=== PATIENT | male | born 1975 | race Caucasian/White ===

== ENCOUNTER 2023-10-26 12:52 | Observation (INO) | payer MEDICARE, SELFPAY ==
[2023-10-26] VITALS (30 sets, daily range): BP systolic 141–186; BP diastolic 76–121; PULSE 61–94; RESP 16–36; TEMP 36.3–37.1; O2SAT 94–100; BMI 26.4
--- NOTE | 2023-10-26 13:16 | ED.GENADULT ---
HPI - General Adult General Time Seen by Provider: 13:16 Date Seen: 10/26/23 Chief complaint: Ear/Nose/Throat Problem Stated complaint: LT ear pain Time Seen by Provider: 10/26/23 13:15 Source: patient and RN notes reviewed Mode of arrival: ambulatory Limitations: no limitations History of Present Illness HPI narrative: This 48-year-old male is coming in complaining with severe left ear pain. He states he was diagnosed with an ear infection yesterday, was given Ciprodex drops in the ER yesterday, ofloxacin and dexamethasone drops were sent in for him to continue to use. He has been having ear drainage. No fevers. He is here because the pain is excruciating, states it feels like his ears going to pop. A wick was reportedly placed yesterday. He did start on oral Augmentin as well. The pain is worsening, travels down his neck, he feels it into his chest, into his eyes. States he is starting to feel dizzy and his whole face feels numb and tingly, he states his numb and tingly everywhere. He is tearful and crying, obviously hyperventilating. States he does have a history of congestive heart failure. Related Data Home Medications ?Medication ?Instructions ?Recorded ?Confirmed amoxicillin 875 mg-potassium 1 tab PO BID 10/26/23 10/26/23 clavulanate 125 mg tablet dexamethasone sodium phosphate 0.1 Otic (ear-left) 10/26/23 % eye drops dextroamphetamine-amphetamine 30 1 tab PO BID 10/26/23 10/26/23 mg tablet lamotrigine 200 mg tablet 200 mg PO QPM 10/26/23 10/26/23 torsemide 20 mg tablet 20 mg PO BID 10/26/23 10/26/23 Allergies Allergy/AdvReac Type Severity Reaction Status Date / Time NSAIDS (Non-Steroidal Allergy Unknown Verified 10/26/23 13:05 Anti-Inflamma Review of Systems Status of ROS: Reports: 6 or more systems reviewed and unremarkable except as noted in History and below [facility] Medical History (Updated 10/26/23 @ 16:10 by Leatha Colorado MD) Otitis externa of left ear ?H60.92 - Unspecified otitis externa, left ear (ICD-10) Congestive heart failure ?I50.9 - Heart failure, unspecified (ICD-10) Exam Const: Vital Signs, click to edit/add: Vital Signs - 24 hr 10/26/23 13:01 10/26/23 13:14 10/26/23 13:15 Temperature 97.4 F L Pulse Rate 80 79 Pulse Rate [Pulse Oximeter] 94 Respiratory Rate 28 H Blood Pressure 152/121 H Blood Pressure [Ri ght Upper Arm] 170/113 H Pulse Oximetry 99 99 100 Oxygen Delivery Me od Room Air 10/26/23 13:23 10/26/23 13:30 10/26/23 13:32 Temperature Pulse Rate 76 75 Pulse Rate [Pulse Oximeter] Respiratory Rate Blood Pressure 164/109 H Blood Pressure [Ri ght Upper Arm] Pulse Oximetry 99 97 97 Oxygen Delivery Me od 10/26/23 13:45 10/26/23 14:03 10/26/23 14:05 Temperature Pulse Rate 73 72 Pulse Rate [Pulse Oximeter] Respiratory Rate 36 H Blood Pressure Blood Pressure [Ri ght Upper Arm] Pulse Oximetry 98 99 Oxygen Delivery Me od 10/26/23 14:05 10/26/23 14:06 10/26/23 14:30 Temperature Pulse Rate 75 70 81 Pulse Rate [Pulse Oximeter] Respiratory Rate Blood Pressure 178/112 H Blood Pressure [Ri ght Upper Arm] Pulse Oximetry 99 99 95 Oxygen Delivery Me thod 10/26/23 14:32 10/26/23 14:33 10/26/23 14:38 Temperature Pulse Rate 76 77 Pulse Rate [Pulse Oximeter] Respiratory Rate 24 Blood Pressure 175/115 H Blood Pressure [Ri ght Upper Arm] Pulse Oximetry 94 95 Oxygen Delivery Me od 10/26/23 15:00 10/26/23 15:02 10/26/23 15:30 Temperature Pulse Rate 87 84 80 Pulse Rate [Pulse Oximeter] Respiratory Rate Blood Pressure 182/115 H Blood Pressure [Ri ght Upper Arm] Pulse Oximetry 98 97 96 Oxygen Delivery Me od 10/26/23 15:32 Temperature Pulse Rate 83 Pulse Rate [Pulse Oximeter] Respiratory Rate Blood Pressure 186/115 H Blood Pressure [Ri ght Upper Arm] Pulse Oximetry 96 Oxygen Delivery Me thod Patient is hyperventilating, tearful/crying, mostly keeps his eyes closed. Conjunctiva with slight vascular injection when he does open his eyes. He is able speak in complete sentences. Symmetrical facial function, no swelling or erythema noted. Left ear canal does seem swollen, cannot visualize into the canal or down to the tympanic membrane. The chelsy bowl does seem mildly erythematous and swollen. He cries out in pain when I attempt to visualize in the ear. There is whitish material, does not seem to be any significant erythema but he has been placing drops in the canal. Right TM and canal are normal. Neck supple, no masses. Lungs are clear, good air entry, no wheezing or crackles. CV regular rate and rhythm, no murmur, normal S1-S2, no S3-S4. No lower extremity edema. Patient was ambulatory into Documenting provider has reviewed patient's vital signs: yes Course Course ED Course: Did encourage this patient to try to slow his breathing and settle down, we discussed hyperventilation. I have no doubt that he has pain, this can be extremely painful. We will get imaging of this ear canal to see the extent of infection. Will get labs. His baseline EKG does have some underlying changes, do not have an active EKG to compare to but will see if we can find 1 in [facility]. In the meantime, check labs, do the imaging of the ear canal and will give him some IV morphine for pain management. He will be monitored on pulse oximetry. Will treat for nausea preemptively with IV Zofran. Reevaluation(s) Time of Reevaluation #1: 15:19 Reevaluation #1: Have reviewed with patient his CT findings. Did place the wick in his ear which he did tolerate. Placed 6 drops of his Ciprodex which is labeled. Will initiate IV Unasyn, will talk to the hospitalist regarding admission for observation. Time of Reevaluation #2: 16:09 Reevaluation #2: Have spoken with the hospitalist, he will accept this patient. Consultations Consultation #1: Reviewed CT findings in case with Dr. Valderrama. He requested I replaced the ear wick, recommends the Ciprodex drops 6 drops every other hour for the time being. Initial IV antibiotics. He will not be here tomorrow but could see the patient on Tuesday if it is needed. I will talk to the hospitalist. Will initiate IV Unasyn. Time: 15:06 Vital Signs Vital signs: Initial Vital Signs Temperature 97.4 F L 10/26/23 13:01 Temperature Source Temporal Artery Scan 10/26/23 13:01 Pulse Rate 94 10/26/23 13:01 Respiratory Rate 28 H 10/26/23 13:01 Blood Pressure 170/113 H 10/26/23 13:01 Blood Pressure Mean 132 H 10/26/23 13:01 Blood Pressure Position Sitting 10/26/23 13:01 Pulse Oximetry 99 10/26/23 13:01 Oxygen Delivery Method Room Air 10/26/23 13:01 Vital Signs Temperature 97.4 F L 10/26/23 13:01 Pulse Rate 94 10/26/23 13:01 Respiratory Rate 28 H 10/26/23 13:01 Blood Pressure 170/113 H 10/26/23 13:01 Pulse Oximetry 99 10/26/23 13:01 Oxygen Delivery Method Room Air 10/26/23 13:01 Temperature 97.4 F L 10/26/23 13:01 Pulse Rate 83 10/26/23 15:32 Respiratory Rate 24 10/26/23 14:38 Blood Pressure 186/115 H 10/26/23 15:32 Pulse Oximetry 96 10/26/23 15:32 Oxygen Delivery Method Room Air 10/26/23 13:01 Medications Administered Medications: Discontinued Medications Generic Name Dose Route Start Last Admin Trade Name Aamir PRN Reason Stop Dose Admin Sodium Chloride 500 mls @ 500 mls/hr 10/26/23 13:25 10/26/23 14:29 0.9 % Sodium Chloride 500 Ml IV 10/26/23 14:24 Infused .Q1H ONE Infusion Ampicillin Sodium/Sulbactam 100 mls @ 200 mls/hr 10/26/23 15:27 10/26/23 15:41 Sodium 3 gm/ Sodium Chloride IVPB 10/26/23 15:28 200 mls/hr ONCE ONE Administration Morphine Sulfate 4 mg 10/26/23 13:25 10/26/23 13:50 Morphine 4 Mg/Ml Inj IVP 10/26/23 13:26 4 mg ONCE ONE Administration Ondansetron HCl 4 mg 10/26/23 13:25 10/26/23 13:50 Ondansetron 2 Mg/Ml Inj IVP 10/26/23 13:26 4 mg ONCE ONE Administration Medical Decision Making Lab Data Lab results reviewed: Yes I reviewed the patient's lab results Labs: Lab Results 10/26/23 Range/Units 13:40 WBC 8.49 (4.50-11.00) K/uL RBC 5.43 (4.30-5.90) m/uL Hgb 18.1 H (13.5-17.5) gm/dL Hct 49.1 (37.0-53.0) % MCV 90 (80-100) fL MCH 33 (26-34) pg MCHC 37 H (32-36) gm/dL RDW Coeff of Jun 12.1 (11.5-15.5) % Plt Count 319 (140-440) K/uL Neut % (Auto) 63.4 (42.0-72.0) % Lymph % (Auto) 27.0 (20-44) % Nelson % (Auto) 7.5 (0.0-11.0) % Eos % (Auto) 1.4 (0.0-7.0) % Baso % (Auto) 0.5 (0.0-3.0) % Neut # (Auto) 5.38 (1.7-7.0) K/uL Lymph # (Auto) 2.29 (0.90-2.90) K/uL Nelson # (Auto) 0.60 (0.00-0.90) K/UL Eos # (Auto) 0.12 (0.00-0.50) K/uL Baso # (Auto) 0.04 (0.00-0.30) K/uL Abs Immat Gran (auto) 0.02 (0.00-0.30) K/uL Imm/Tot Granulo (auto) 0.2 % Sodium 138 (135-149) mmol/L Potassium 3.8 (3.6-5.1) mmol/L Chloride 104 (96-114) mmol/L Carbon Dioxide 21 (20-32) mmol/L Anion Gap 13 (7-15) mEq/L BUN 12 (5-24) mg/dL Creatinine 0.7 (0.5-1.5) mg/dL Estimated GFR 113 ml/min Glucose 147 H (60-115) mg/dL Lactate 2.7 H (0.5-1.9) mmol/L Calcium 9.6 (8.4-10.6) mg/dL Troponin I < 0.01 L (0.01-0.04) ng/mL C-Reactive Protein 1.0 (0.5-1.0) mg/dL NT-Pro-B Natriuret Pep 204 pg/mL Procalcitonin 0.07 (<0.50) ng/mL Imaging Data CT scan - head: Attestation: I have reviewed the pertinent imaging results. My impression: Did visualize the CT scan, can see the canal swelling. Radiologist's impression: Patient: CLAUDY WALDRON Facility:?[facility] Patient ID:?[id number] Site Patient ID:?[id number]. Site :?[id number] Study:?CT-Temporal Bone Bilateral WITHOUT-10/26/2023 2:10:56 PM Ordering Physician:John Paul Zhang Final Report: INDICATION: Severe otitis media TECHNIQUE: CT of the temporal bones without contrast. Coronal and axial small field of view reconstructions of both temporal bones are included. COMPARISON: No relevant comparison studies available for review at the time of this dictation. FINDINGS: RIGHT temporal bone: External ear: Normal imaged periauricular soft tissues. Normal external auditory canal. Normal tympanic membrane. Middle ear: Clear mastoid air cells. Clear epitympanum, mesotympanum and hypotympanum. Normal ossicular chain. Clear oval and round windows. Normal facial nerve canal. Inner ear: Normal mineralization of the otic capsule. Normal cochlea, vestibule, semicircular canals and vestibular aqueduct. Normal internal auditory canal. Vascular: Normal carotid canal and jugular fossa. LEFT temporal bone: External ear: Complete opacification of the external auditory canal, presumably from circumferential mucosal thickening, and trace fluid, extending to the external ear. Intact bony scutum. No suspicious bony erosions. Middle ear: Low-attenuation fluid/debris throughout the epitympanum and hypotympanum, with opacified oval and round windows, and small mastoid effusion. Intact ossicular chain. No suspicious bony erosions. Normal facial nerve canal. Inner ear: Normal mineralization of the otic capsule. Normal cochlea, vestibule, semicircular canals and vestibular aqueduct. Normal internal auditory canal. Vascular: Normal carotid canal and jugular fossa. Imaged head: Calcific plaquing at the carotid siphons. ORIF changes at the maxilla. IMPRESSION: 1. Findings compatible with left otitis externa, including complete opacification of the external auditory canal from circumferential mucosal thickening and trace fluid. 2. Small left middle ear and mastoid effusions, suggesting superimposed otitis media/otomastoiditis. 3. No suspicious bony erosions. Normal CT appearance of the right temporal bone. Please note that all CT scans at this facility use dose modulation, iterative reconstruction, and/or weight-based dosing when appropriate to reduce radiation dose to as low as reasonably achievable. Dictated by Isabel Sewell MD @ 10/26/2023 2:40:22 PM (Electronic Signature) ECG Data Attestation: I personally reviewed and interpreted this ECG as follows: (Sinus rhythm, 83 beats per minute. Flipped T-waves in anterolateral leads as well as inferiorly. No definitive ST segment changes.) Prior ECG tracings: not available for review Discharge Plan Discharge Clinical Impression: Acute mastoiditis of left side Otitis externa Qualifiers: Otitis externa type: diffuse Chronicity: acute Laterality: left Qualified Code(s): H60.312 - Diffuse otitis externa, left ear Patient Disposition: Admitted As Observation Prescriptions: No Action lamotrigine 200 mg tablet 200 mg PO QPM torsemide 20 mg tablet 20 mg PO BID dexamethasone sodium phosphate 0.1 % drops Otic (ear-left) dextroamphetamine-amphetamine 30 mg tablet 1 tab PO BID amoxicillin-pot clavulanate 875-125 mg tablet 1 tab PO BID Follow Up/Referrals: Provider,Not a Local [Primary Care Provider] - Stand Alone Forms: [employer] Info Instructions
--- NOTE | 2023-10-26 13:24 | CRLHL7_ITS ---
For Patients: As a result of the Century Cures Act, medical imaging exams and procedure reports are released immediately into your electronic medical record. You may view this report before your referring provider. If you have questions, please contact your health care provider. INDICATION: Severe otitis media TECHNIQUE: CT of the temporal bones without contrast. Coronal and axial small field of view reconstructions of both temporal bones are included. COMPARISON: No relevant comparison studies available for review at the time of this dictation. FINDINGS: RIGHT temporal bone: External ear: Normal imaged periauricular soft tissues. Normal external auditory canal. Normal tympanic membrane. Middle ear: Clear mastoid air cells. Clear epitympanum, mesotympanum and hypotympanum. Normal ossicular chain. Clear oval and round windows. Normal facial nerve canal. Inner ear: Normal mineralization of the otic capsule. Normal cochlea, vestibule, semicircular canals and vestibular aqueduct. Normal internal auditory canal. Vascular: Normal carotid canal and jugular fossa. LEFT temporal bone: External ear: Complete opacification of the external auditory canal, presumably from circumferential mucosal thickening, and trace fluid, extending to the external ear. Intact bony scutum. No suspicious bony erosions. Middle ear: Low-attenuation fluid/debris throughout the epitympanum and hypotympanum, with opacified oval and round windows, and small mastoid effusion. Intact ossicular chain. No suspicious bony erosions. Normal facial nerve canal. Inner ear: Normal mineralization of the otic capsule. Normal cochlea, vestibule, semicircular canals and vestibular aqueduct. Normal internal auditory canal. Vascular: Normal carotid canal and jugular fossa. Imaged head: Calcific plaquing at the carotid siphons. ORIF changes at the maxilla. IMPRESSION: 1. Findings compatible with left otitis externa, including complete opacification of the external auditory canal from circumferential mucosal thickening and trace fluid. 2. Small left middle ear and mastoid effusions, suggesting superimposed otitis media/otomastoiditis. 3. No suspicious bony erosions. Normal CT appearance of the right temporal bone. Please note that all CT scans at this facility use dose modulation, iterative reconstruction, and/or weight-based dosing when appropriate to reduce radiation dose to as low as reasonably achievable. Dictated by Isabel Sewell MD @ 10/26/2023 2:40:22 PM (Electronically Signed)
[2023-10-26 13:46] LABS: Lactate* 2.7 mmol/L (0.5-1.9)
[2023-10-26] MEDS: 0.9 % SODIUM CHLORIDE 500 ML 500 ML IV (13:49)
[2023-10-26] MEDS: ONDANSETRON 2 MG/ML inj 4 MG IVP (13:50)
[2023-10-26] MEDS: MORPHINE 4 MG/ML INJ IVP (13:50)
[2023-10-26 14:24] LABS: Creatinine* 0.7 mg/dL (0.5-1.5); Estimated Glomerular Filt Rate 113 ml/min
[2023-10-26 14:29] LABS: Basophils Absolute Auto 0.04 K/uL (0.00-0.30); Basophils Percent Auto 0.5 % (0.0-3.0); Eosinophils Absolute Auto 0.12 K/uL (0.00-0.50); Eosinophils Percent Auto 1.4 % (0.0-7.0); Hematocrit 49.1 % (37.0-53.0); Hemoglobin* 18.1 gm/dL (13.5-17.5); Immature Granulocytes Abs Auto 0.02 K/uL (0.00-0.30); Immature Granulocytes Pct Auto 0.2 %; Lymphocytes Absolute Auto 2.29 K/uL (0.90-2.90); Mean Corpuscular HGB Conc 37 gm/dL (32-36); Mean Corpuscular Hemoglobin 33 pg (26-34); Mean Corpuscular Volume 90 fL (80-100); Monocytes Percent Auto 7.5 % (0.0-11.0); Neutrophils Absolute Auto 5.38 K/uL (1.7-7.0); Neutrophils Percent Auto 63.4 % (42.0-72.0); Platelet Count* 319 K/uL (140-440); RDW Coefficient of Variation % 12.1 % (11.5-15.5); Red Blood Count 5.43 m/uL (4.30-5.90); White Blood Count* 8.49 K/uL (4.50-11.00)
[2023-10-26 14:33] LABS: Chloride* 104 mmol/L (96-114); Sodium* 138 mmol/L (135-149)
[2023-10-26 14:38] LABS: Slide Review Reflex No
[2023-10-26 14:52] LABS: Anion Gap 13 mEq/L (7-15); Blood Urea Nitrogen* 12 mg/dL (5-24); Calcium* 9.6 mg/dL (8.4-10.6); Carbon Dioxide* 21 mmol/L (20-32); Glucose* 147 mg/dL (60-115); NT Pro B Type NatriureticPept* 204 pg/mL; Potassium* 3.8 mmol/L (3.6-5.1); Troponin I* < 0.01 ng/mL (0.01-0.04)
[2023-10-26 14:53] LABS: Procalcitonin* 0.07 ng/mL (<0.50)
[2023-10-26] MEDS: AMPICILLIN/SULBACTAM 3 GM in 0.9 % SODIUM CHLORIDE Mini-bag 100 ML IVPB (15:41)
[2023-10-26] MEDS: MORPHINE 2 MG/ML inj IVP (16:18)
[2023-10-26] MEDS: CIPROFLOX/DEXAMETH OTIC ($) 4 DROP EAR-LEFT ×4 (17:00→22:32)
--- NOTE | 2023-10-26 17:26 | PM.IMHP1 ---
Hospitalist- H&P: HPI History of Present Illness Date Seen: 10/26/23 Chief complaint: LT ear pain Narrative: Phillip Galvez JR is a 48 year old male with coronary artery disease and smoking presents with a 3 day history of worsening left ear pain. On Tuesday 3 days ago he started having left ear discomfort and has gradually gotten worse over the last 2 days. He went to the emergency department in [place] yesterday where they diagnosed external otitis, placed a wick and started him on ciprofloxacin hydrocortisone drops and oral Augmentin. Over last day his ear is gotten worse any presents to our emergency department for further evaluation and treatment. He reports he has had previous ear problems for which he seen Dr. Valderrama in December 2019. At that time he was having left facial pain with a broad differential of possible causes. He has not had a fever. He reports that has been painful to swallow and chew in the last 2 days. He does not have a primary care provider or primary radio control crane operator any longer. Previously saw radio control crane operator at [facility] for his coronary artery disease and heart failure with preserved ejection fraction. He has also stopped taking some of his medications for his heart disease including his atorvastatin, carvedilol and his lisinopril. He continues to take his torsemide. Review of Systems Narrative: Patient reports generally doing well other than his ear problems. No current symptoms of heart disease including chest pain, palpitations, unusual dyspnea. [facility] Medical History (Updated 10/26/23 @ 17:59 by Mark Davies MD) Coronary artery disease ?I25.10 - Atherosclerotic heart disease of [place] coronary artery without angina pectoris (ICD-10) Diabetes mellitus ?E11.9 - Type 2 diabetes mellitus without complications (ICD-10) CHILDERS (nonalcoholic steatohepatitis) ?K75.81 - Nonalcoholic steatohepatitis (CHILDERS) (ICD-10) Hypothyroidism ?E03.9 - Hypothyroidism, unspecified (ICD-10) Tobacco abuse ?Z72.0 - Tobacco use (ICD-10) Bipolar disorder ?F31.9 - Bipolar disorder, unspecified (ICD-10) ADHD ?F90.9 - Attention-deficit hyperactivity disorder, unspecified type (ICD-10) Dyslipidemia ?E78.5 - Hyperlipidemia, unspecified (ICD-10) Hypertension ?I10 - Essential (primary) hypertension (ICD-10) Otitis externa of left ear ?H60.92 - Unspecified otitis externa, left ear (ICD-10) Congestive heart failure ?I50.9 - Heart failure, unspecified (ICD-10) Surgical History (Updated 10/26/23 @ 17:44 by Mark Davies MD) History of cholecystectomy ?Z90.49 - Acquired absence of other specified parts of digestive tract (ICD-10) History of Kyle-en-Y gastric bypass ?Z98.84 - Bariatric surgery status (ICD-10) History of coronary artery bypass graft x 3 ?Z95.1 - Presence of aortocoronary bypass graft (ICD-10) Family History (Updated 10/26/23 @ 17:45 by Mark Davies MD) Mother COPD (chronic obstructive pulmonary disease) Father COPD (chronic obstructive pulmonary disease) Coronary artery disease Diabetes High blood pressure High cholesterol Social History (Updated 10/26/23 @ 18:02 by Mark Davies MD) Narrative: He lives in [place] with his . Current smoker. Does not drink alcohol. Does not use recreational drugs. Code status is full code for witnessed arrest. [facility] What is your current living situation?: I presently have a place to live Problems where you live: no known problems Problems where you live details: NA In the past 12 months, utilities in danger of being shut off: no In past 12 months, lack of transportation kept you from medical appts, meetings, work, or getting things needed for daily living: no In the past 12 mos, have been you worried that your food would run out before you had money to buy more?: never true In the past 12 mos, the food you bought just didn't last and you didn't have money to buy more?: never true Highest level of school completed/degree received: Associate degree: occupational, technical, vocational program Smoking Status: Current every day smoker Second hand tobacco smoke exposure: Yes How often do you have a drink containing alcohol: monthly or less How many standard drinks containing alcohol do you have on a typical day: 1 or 2 How often do you have six or more drinks on one occasion: Never AUDIT-C Alcohol total score: 1 Non-prescribed substance use: denies use Caffeine: Yes How often does anyone, including family, friends and others, physically hurt you: never How often does anyone, including family, friends and others, insult or talk down to you: never How often does anyone, including family, friends and others, threaten you with harm: never How often does anyone, including family, friends and others, scream or curse at you: never service: No Meds Home Medications and Allergies Home Medications ?Medication ?Instructions ?Recorded ?Confirmed ?Type amoxicillin 875 mg-potassium 1 tab PO BID 10/26/23 10/26/23 History clavulanate 125 mg tablet ciprofloxacin 0.3 %-dexamethasone 4 drp Otic (ear-left) BID 10/26/23 10/26/23 History 0.1 % ear drops,suspension (Ciprodex) dexamethasone sodium phosphate 0.1 4 drp Otic (ear-left) BID 10/26/23 10/26/23 History % eye drops dextroamphetamine-amphetamine 30 10 mg PO TID 10/26/23 10/26/23 History mg tablet lamotrigine 200 mg tablet 200 mg PO DAILY 10/26/23 10/26/23 History ofloxacin 0.3 % eye drops 10 drp otic (ear) DAILY 10/26/23 10/26/23 History torsemide 20 mg tablet 20 mg PO TID 10/26/23 10/26/23 History Allergies Allergy/AdvReac Type Severity Reaction Status Date / Time NSAIDS (Non-Steroidal Allergy Unknown Verified 10/26/23 13:05 Anti-Inflamma Exam Narrative: Exam Narrative: He is alert and appears in no obvious distress. He gives his own history. He is pleasant and cooperative. Head is without trauma. Inspection shows mild erythema and swelling around the left pinna. Wick is placed in his left external auditory canal, which is otherwise swollen shut. Diffusely tender with palpation over the pinna and surrounding the left ear. Right pinna and external canal are unremarkable except for a small external canal on the right. Eyes normal. Oropharynx normal. No facial asymmetry. He has some discomfort on the left with opening and closing but no trismus. Oropharynx with dry mucous membranes but otherwise normal. Neck is supple without mass or adenopathy. Mild tenderness in the anterior chain of nodes on the left without lymphadenopathy. No stridor. Respirations are clear to auscultation except for a rare crackle. Cardiovascular: S1, S2, regular rate and rhythm. No murmur gallop or rub. Abdomen is soft without tenderness or mass. External genitalia normal. Extremities normal. Good perfusion. No edema. Const: Vital Signs, click to edit/add: Vital Signs - 24 hr 10/26/23 13:01 10/26/23 13:14 10/26/23 13:15 Temperature 97.4 F L Pulse Rate 80 79 Pulse Rate [Pulse Oximeter] 94 Respiratory Rate 28 H Blood Pressure 152/121 H Blood Pressure [Ri ght Arm] Blood Pressure [Ri ght Upper Arm] 170/113 H Pulse Oximetry 99 99 100 Oxygen Delivery Me thod Room Air 10/26/23 13:23 10/26/23 13:30 10/26/23 13:32 Temperature Pulse Rate 76 75 Pulse Rate [Pulse Oximeter] Respiratory Rate Blood Pressure 164/109 H Blood Pressure [Ri ght Arm] Blood Pressure [Ri ght Upper Arm] Pulse Oximetry 99 97 97 Oxygen Delivery Me thod 10/26/23 13:45 10/26/23 14:03 10/26/23 14:05 Temperature Pulse Rate 73 72 Pulse Rate [Pulse Oximeter] Respiratory Rate 36 H Blood Pressure Blood Pressure [Ri ght Arm] Blood Pressure [Ri ght Upper Arm] Pulse Oximetry 98 99 Oxygen Delivery Me thod 10/26/23 14:05 10/26/23 14:06 10/26/23 14:30 Temperature Pulse Rate 75 70 81 Pulse Rate [Pulse Oximeter] Respiratory Rate Blood Pressure 178/112 H Blood Pressure [Ri ght Arm] Blood Pressure [Ri ght Upper Arm] Pulse Oximetry 99 99 95 Oxygen Delivery Me thod 10/26/23 14:32 10/26/23 14:33 10/26/23 14:38 Temperature Pulse Rate 76 77 Pulse Rate [Pulse Oximeter] Respiratory Rate 24 Blood Pressure 175/115 H Blood Pressure [Ri ght Arm] Blood Pressure [Ri ght Upper Arm] Pulse Oximetry 94 95 Oxygen Delivery Me thod 10/26/23 15:00 10/26/23 15:02 10/26/23 15:30 Temperature Pulse Rate 87 84 80 Pulse Rate [Pulse Oximeter] Respiratory Rate Blood Pressure 182/115 H Blood Pressure [Ri ght Arm] Blood Pressure [Ri ght Upper Arm] Pulse Oximetry 98 97 96 Oxygen Delivery Me thod 10/26/23 15:32 10/26/23 15:33 07/10/24 16:00 Temperature Pulse Rate 83 84 84 Pulse Rate [Pulse Oximeter] Respiratory Rate Blood Pressure 186/115 H Blood Pressure [Ri ght Arm] Blood Pressure [Ri ght Upper Arm] Pulse Oximetry 96 96 96 Oxygen Delivery Me thod 10/26/23 16:02 10/26/23 16:03 10/26/23 16:18 Temperature Pulse Rate 83 89 Pulse Rate [Pulse Oximeter] Respiratory Rate 32 H Blood Pressure 178/109 H Blood Pressure [Ri ght Arm] Blood Pressure [Ri ght Upper Arm] Pulse Oximetry 97 96 Oxygen Delivery Me thod 10/26/23 16:30 10/26/23 16:32 10/26/23 17:18 Temperature 97.7 F Pulse Rate 83 84 Pulse Rate [Pulse Oximeter] 76 Respiratory Rate 30 H Blood Pressure 166/104 H Blood Pressure [Ri ght Arm] 177/101 H Blood Pressure [Ri ght Upper Arm] Pulse Oximetry 97 97 97 Oxygen Delivery Me thod Room Air Documenting provider has reviewed patient's vital signs: yes Hospitalist - H&P: Result Labs Labs: Short CBC 10/26/23 Range/Units 13:40 WBC 8.49 (4.50-11.00) K/uL Hgb 18.1 H (13.5-17.5) gm/dL Hct 49.1 (37.0-53.0) % Plt Count 319 (140-440) K/uL BMP 10/26/23 13:40 Sodium 138 Potassium 3.8 Chloride 104 Carbon Dioxide 21 BUN 12 Creatinine 0.7 Glucose 147 H Calcium 9.6 Cardiac Enzymes 10/26/23 Range/Units 13:40 Troponin I < 0.01 L (0.01-0.04) ng/mL Imaging CT temporal bones: Radiologist's impression: INDICATION: Severe otitis media TECHNIQUE: CT of the temporal bones without contrast. Coronal and axial small field of view reconstructions of both temporal bones are included. COMPARISON: No relevant comparison studies available for review at the time of this dictation. FINDINGS: RIGHT temporal bone: External ear: Normal imaged periauricular soft tissues. Normal external auditory canal. Normal tympanic membrane. Middle ear: Clear mastoid air cells. Clear epitympanum, mesotympanum and hypotympanum. Normal ossicular chain. Clear oval and round windows. Normal facial nerve canal. Inner ear: Normal mineralization of the otic capsule. Normal cochlea, vestibule, semicircular canals and vestibular aqueduct. Normal internal auditory canal. Vascular: Normal carotid canal and jugular fossa. LEFT temporal bone: External ear: Complete opacification of the external auditory canal, presumably from circumferential mucosal thickening, and trace fluid, extending to the external ear. Intact bony scutum. No suspicious bony erosions. Middle ear: Low-attenuation fluid/debris throughout the epitympanum and hypotympanum, with opacified oval and round windows, and small mastoid effusion. Intact ossicular chain. No suspicious bony erosions. Normal facial nerve canal. Inner ear: Normal mineralization of the otic capsule. Normal cochlea, vestibule, semicircular canals and vestibular aqueduct. Normal internal auditory canal. Vascular: Normal carotid canal and jugular fossa. Imaged head: Calcific plaquing at the carotid siphons. ORIF changes at the maxilla. IMPRESSION: 1. Findings compatible with left otitis externa, including complete opacification of the external auditory canal from circumferential mucosal thickening and trace fluid. 2. Small left middle ear and mastoid effusions, suggesting superimposed otitis media/otomastoiditis. 3. No suspicious bony erosions. Normal CT appearance of the right temporal bone. Assessment and Plan Assessment and plan (1) Otitis externa of left ear: Problem comment: q2h Ciprodex until ear is better. Zosyn to cover Pseudomonas. Nasal swab for MRSA if positive would recommend coverage for MRSA as well. If not needing MRSA coverage consider outpatient Levaquin. Status: Acute (2) Acute mastoiditis of left side: Problem comment: As above Status: Acute (3) Tobacco abuse: Problem comment: Recommend smoking cessation. He declines nicotine replacement currently Status: Acute (4) Hypothyroidism: Problem comment: Previously on levothyroxine. Tells me he no longer needs it. Check TSH Status: Acute (5) Diabetes mellitus: Problem comment: Not on treatment. Check hemoglobin A1c Status: Acute (6) Hypertension: Problem comment: Stopped Carvedilol and lisinopril on his own. Currently hypertensive. Encouraged medication compliance as well as ongoing outpatient primary care and Cardiology follow-up. Status: Acute (7) Coronary artery disease: Problem comment: Non STEMI and CABG x3 in 2019. Now off most of his medication. Recommended restarting medications and establishing primary care and cardiology appointments. Status: Acute Plan Admitted for pain control and IV antibiotics for mastoiditis and otitis externa. Total Time Spent Total Time Spent: Total time spent today is 75 minutes discussing with patient, and other providers ongoing evaluation and management of mastoiditis, external otitis, coronary disease and hypertension.
--- NOTE | 2023-10-26 18:09 | PC.NURSE ---
Pt arrived to floor at 1638. Pt alert and oriented. Pt had complaints of pain ranging from 8-10 in left ear; see EMAR. Pt is hypertensive and tachypneic; oxygen saturations in high 90's Pt up with SBA. Pt?s at bedside.?
[2023-10-26] MEDS: OXYCODONE 5 MG TABLET PO ×2 (18:41→22:31)
[2023-10-26 18:45] LABS: Hemoglobin A1C* 6.4 % (0-5.6)
[2023-10-26] MEDS: PIPERACILLIN/TAZOBACTAM 3.375 GM in 0.9 % SODIUM CHLORIDE Mini-bag 100 ML IVPB (20:02)
[2023-10-26] MEDS: MELATONIN 3 MG TABLET PO (20:08)
[2023-10-26] MEDS: ACETAMINOPHEN 325 MG TABLET 650 MG PO (20:08)
[2023-10-26] MEDS: SODIUM CHLORIDE 0.9 % (FLUSH) 10 ML SYRINGE 5 ML IVF (20:10)
[2023-10-27] MEDS: CIPROFLOX/DEXAMETH OTIC ($) 4 DROP EAR-LEFT ×6 (02:16→12:11)
[2023-10-27] MEDS: PIPERACILLIN/TAZOBACTAM 3.375 GM in 0.9 % SODIUM CHLORIDE Mini-bag 100 ML IVPB ×2 (02:16→08:12)
[2023-10-27 03:00] VITALS: BP 145/79; PULSE 61; PULSE 83; RESP 16; TEMP 36.4; O2SAT 97
[2023-10-27] MEDS: OXYCODONE 5 MG TABLET PO ×2 (04:02→08:12)
--- NOTE | 2023-10-27 06:51 | PC.NURSE ---
Shift note: The pt has been pleasant and cooperative; denied chest pain and short of breath; Spo2 has been in the 90s in [place]. The pt was c/o of moderate left ear pain the pain was managed with PRN pain medication. Tolerating IV ABX. The pt appeared without any acute distress
[2023-10-27 07:44] VITALS: BP 162/97; PULSE 57; RESP 20; TEMP 36.5; O2SAT 97
[2023-10-27] MEDS: SODIUM CHLORIDE 0.9 % (FLUSH) 10 ML SYRINGE 5 ML IVF (08:13)
[2023-10-27 12:08] VITALS: BP 168/103; PULSE 73; RESP 18; TEMP 36.4; O2SAT 96
--- NOTE | 2023-10-27 12:12 | PM.DS1 ---
DS: Providers Provider Date Seen: 10/27/23 Date of admission: 10/26/23 16:27 Primary care physician: Not a Local Provider Admitting Clinician: Mark Davies MD Attending Physician on discharge: Keren Nicolas [facility] Date of Discharge: 10/27/23 DS: Diagnosis Discharge Diagnosis (1) Otitis externa of left ear: Status: Acute Problem details: Admitted for failed outpatient therapy. CT shows findings compatible with left otitis externa, including complete opacification of the external auditory canal from circumferential mucosal thickening and trace fluid. Small left middle ear and mastoid effusions, suggesting superimposed otitis media/otomastoiditis Started on q2h Ciprodex transitioning to q.4h with close outpatient follow-up with PCP. Initiated on Zosyn to cover Pseudomonas. Transitioned to oral ciprofloxacin on discharge. Nasal swab for MRSA negative. Outpatient follow-up with PCP and ENT recommended (2) Acute mastoiditis of left side: Status: Acute Problem details: As above On day of discharge, patient reporting sensation of drainage from right canal. On exam, none noted. However mild erythema with swelling. Recommended to initiate drops in both ears. (3) Tobacco abuse: Status: Acute Problem details: Recommend smoking cessation. He declines nicotine replacement currently (4) Hypothyroidism: Status: Acute Problem details: Previously on levothyroxine. Tells me he no longer needs it. TSH 6.11. Recommend outpatient follow up for further management. (5) Diabetes mellitus: Status: Acute Problem details: Not on treatment. Hemoglobin A1c 6.4. Heart healthy, low carb diet recommended. Outpatient follow up with PCP. (6) Hypertension: Status: Acute Problem details: Stopped Carvedilol and lisinopril on his own. Currently hypertensive. Encouraged medication compliance as well as ongoing outpatient primary care and Cardiology follow-up. (7) Coronary artery disease: Status: Acute Problem details: Non STEMI and CABG x3 in 2019. Now off most of his medication. Recommended restarting medications and establishing primary care and cardiology appointments. DS: Summary Hospital Course Hospital Course: [age] year old male was admitted to the medical floor for further management failed outpatient therapy acute otitis externa/media/mastoiditis. Course of care and details as noted above. Initiated on IV antibiotics, transition to oral antibiotics prior to discharge. Increased frequency of antibiotic ear drops. In general, patient noncompliant with overall health management and will need close outpatient follow-up with PCP. Remainder of chronic medical comorbidities were monitored and managed with home medications. Status at Discharge Overall status at discharge: patient is back to baseline Time Spent with Patient Time attestation: Total time spent providing and/or coordinating discharge services: Time spent: Greater than 30 minutes Exam Narrative: Exam Narrative: PHYSICAL EXAM General: Pleasant, conversant, NAD HEENT: L canal with swelling, mild erythema. R canal with very minimal swelling and erythema without drainage. Mild lymphadenopathy left side, with little tenderness. Cardiovascular: RRR Pulmonary: No dyspnea Neurological: Alert, answering questions appropriately Skin: Warm, dry. Const: Vital Signs, click to edit/add: Vital Signs - 24 hr 10/26/23 13:01 10/26/23 13:14 10/26/23 13:15 Temperature 97.4 F L Pulse Rate 80 79 Pulse Rate [Pulse Oximeter] 94 Respiratory Rate 28 H Blood Pressure 152/121 H Blood Pressure [Ri ght Arm] Blood Pressure [Ri ght Upper Arm] 170/113 H Pulse Oximetry 99 99 100 Oxygen Delivery Me thod Room Air 10/26/23 13:23 10/26/23 13:30 10/26/23 13:32 Temperature Pulse Rate 76 75 Pulse Rate [Pulse Oximeter] Respiratory Rate Blood Pressure 164/109 H Blood Pressure [Ri ght Arm] Blood Pressure [Ri ght Upper Arm] Pulse Oximetry 99 97 97 Oxygen Delivery Me thod 10/26/23 13:45 10/26/23 14:03 10/26/23 14:05 Temperature Pulse Rate 73 72 Pulse Rate [Pulse Oximeter] Respiratory Rate 36 H Blood Pressure Blood Pressure [Ri ght Arm] Blood Pressure [Ri ght Upper Arm] Pulse Oximetry 98 99 Oxygen Delivery Me thod 10/26/23 14:05 10/26/23 14:06 10/26/23 14:30 Temperature Pulse Rate 75 70 81 Pulse Rate [Pulse Oximeter] Respiratory Rate Blood Pressure 178/112 H Blood Pressure [Ri ght Arm] Blood Pressure [Ri ght Upper Arm] Pulse Oximetry 99 99 95 Oxygen Delivery Me thod 10/26/23 14:32 10/26/23 14:33 10/26/23 14:38 Temperature Pulse Rate 76 77 Pulse Rate [Pulse Oximeter] Respiratory Rate 24 Blood Pressure 175/115 H Blood Pressure [Ri ght Arm] Blood Pressure [Ri ght Upper Arm] Pulse Oximetry 94 95 Oxygen Delivery Me thod 10/26/23 15:00 10/26/23 15:02 10/26/23 15:30 Temperature Pulse Rate 87 84 80 Pulse Rate [Pulse Oximeter] Respiratory Rate Blood Pressure 182/115 H Blood Pressure [Ri ght Arm] Blood Pressure [Ri ght Upper Arm] Pulse Oximetry 98 97 96 Oxygen Delivery Me thod 10/26/23 15:32 10/26/23 15:33 10/26/23 16:00 Temperature Pulse Rate 83 84 84 Pulse Rate [Pulse Oximeter] Respiratory Rate Blood Pressure 186/115 H Blood Pressure [Ri ght Arm] Blood Pressure [Ri ght Upper Arm] Pulse Oximetry 96 96 96 Oxygen Delivery Me od 10/26/23 16:02 10/26/23 16:03 10/26/23 16:18 Temperature Pulse Rate 83 89 Pulse Rate [Pulse Oximeter] Respiratory Rate 32 H Blood Pressure 178/109 H Blood Pressure [Ri ght Arm] Blood Pressure [Ri ght Upper Arm] Pulse Oximetry 97 96 Oxygen Delivery Me od 10/26/23 16:30 10/26/23 16:32 10/26/23 17:18 Temperature 97.7 F Pulse Rate 83 84 Pulse Rate [Pulse Oximeter] 76 Respiratory Rate 30 H Blood Pressure 166/104 H Blood Pressure [Ri ght Arm] 177/101 H Blood Pressure [Ri ght Upper Arm] Pulse Oximetry 97 97 97 Oxygen Delivery Me od Room Air 10/26/23 17:18 10/26/23 19:16 10/26/23 20:08 Temperature 98.8 F 98.8 F Pulse Rate Pulse Rate [Pulse Oximeter] 82 Respiratory Rate 30 H 16 Blood Pressure Blood Pressure [Ri ght Arm] 153/104 H Blood Pressure [Ri ght Upper Arm] Pulse Oximetry 97 97 Oxygen Delivery Me od Room Air Room Air 10/26/23 20:42 10/26/23 23:00 10/27/23 03:00 Temperature 98.8 F 97.6 F Pulse Rate Pulse Rate [Pulse Oximeter] 61 61 Respiratory Rate 16 16 Blood Pressure Blood Pressure [Ri ght Arm] 141/76 H Blood Pressure [Ri ght Upper Arm] Pulse Oximetry 96 Oxygen Delivery Me od Room Air 10/27/23 03:00 10/27/23 07:44 10/27/23 12:08 Temperature 97.5 F L 97.7 F 97.5 F L Pulse Rate Pulse Rate [Pulse Oximeter] 83 57 L 73 Respiratory Rate 16 20 18 Blood Pressure Blood Pressure [Ri ght Arm] 145/79 H 162/97 H 168/103 H Blood Pressure [Ri ght Upper Arm] Pulse Oximetry 97 97 96 Oxygen Delivery Me thod Room Air Room Air Room Air DS: Data Data Completed and Pending Labs on day of discharge: Labs from last 24 hours 10/26/23 10/26/23 10/26/23 17:44 17:28 13:40 WBC 8.49 RBC 5.43 Hgb 18.1 H Hct 49.1 MCV 90 MCH 33 MCHC 37 H RDW Coeff of Jun 12.1 Plt Count 319 Neut % (Auto) 63.4 Lymph % (Auto) 27.0 Oliver % (Auto) 7.5 Eos % (Auto) 1.4 Baso % (Auto) 0.5 Neut # (Auto) 5.38 Lymph # (Auto) 2.29 Oliver # (Auto) 0.60 Eos # (Auto) 0.12 Baso # (Auto) 0.04 Abs Immat Gran (auto) 0.02 Imm/Tot Granulo (auto) 0.2 Sodium 138 Potassium 3.8 Chloride 104 Carbon Dioxide 21 Anion Gap 13 BUN 12 Creatinine 0.7 Estimated GFR 113 Glucose 147 H Hemoglobin A1c 6.4 H Lactate 2.7 H Calcium 9.6 Troponin I < 0.01 L C-Reactive Protein 1.0 NT-Pro-B Natriuret Pep 204 Procalcitonin 0.07 TSH 6.110 H Lab Acknowledgement Test Added Test Added Imaging CT auditory canal: Attestation: I have reviewed the pertinent imaging results. Radiologist's impression: RIGHT temporal bone: External ear: Normal imaged periauricular soft tissues. Normal external auditory canal. Normal tympanic membrane. Middle ear: Clear mastoid air cells. Clear epitympanum, mesotympanum and hypotympanum. Normal ossicular chain. Clear oval and round windows. Normal facial nerve canal. Inner ear: Normal mineralization of the otic capsule. Normal cochlea, vestibule, semicircular canals and vestibular aqueduct. Normal internal auditory canal. Vascular: Normal carotid canal and jugular fossa. LEFT temporal bone: External ear: Complete opacification of the external auditory canal, presumably from circumferential mucosal thickening, and trace fluid, extending to the external ear. Intact bony scutum. No suspicious bony erosions. Middle ear: Low-attenuation fluid/debris throughout the epitympanum and hypotympanum, with opacified oval and round windows, and small mastoid effusion. Intact ossicular chain. No suspicious bony erosions. Normal facial nerve canal. Inner ear: Normal mineralization of the otic capsule. Normal cochlea, vestibule, semicircular canals and vestibular aqueduct. Normal internal auditory canal. Vascular: Normal carotid canal and jugular fossa. Imaged head: Calcific plaquing at the carotid siphons. ORIF changes at the maxilla. IMPRESSION: 1. Findings compatible with left otitis externa, including complete opacification of the external auditory canal from circumferential mucosal thickening and trace fluid. 2. Small left middle ear and mastoid effusions, suggesting superimposed otitis media/otomastoiditis. 3. No suspicious bony erosions. Normal CT appearance of the right temporal bone. Discharge Plan Discharge Disposition: Home, Self-Care Date of Admission: 10/26/23 16:27 Attending Provider on Discharge: Keren Nicolas Primary Care Provider: Provider,Not a Local Condition: Improved Anticipated Discharge Date/Time: 10/27/23 10:25 Discharge Medications: New ciprofloxacin HCl 500 mg tablet 500 mg PO BID Qty: 14 0RF Continued lamotrigine 200 mg tablet 200 mg PO DAILY torsemide 20 mg tablet 20 mg PO TID dextroamphetamine-amphetamine 30 mg tablet 10 mg PO TID dexamethasone sodium phosphate 0.1 % drops 4 drp Otic (ear-left) BID Changed ciprofloxacin-dexamethasone [Ciprodex] 0.3-0.1 % drops,suspension 4 drp otic (ear) Q4H Qty: 7.5 0RF Discontinued amoxicillin-pot clavulanate 875-125 mg tablet 1 tab PO BID ofloxacin 0.3 % drops 10 drp otic (ear) DAILY Patient Comments: INSTILL 10 DROPS IN THE LEFT EAR ONCE DAILY FOR 7 DAYS Discharge Orders: Discharge Order (Routine); Ordered 10/27/23 Ordered By: Keren Nicolas Patient Education: Ciprofloxacin (By mouth) (Cipro), Mastoiditis (GEN) Additional Instructions: Continue to use drops in both ears. Ciprodex drops every 4 hours. You can stop the Ofloxacin drops. You will also take an oral antibiotic for the next 7 days. Close follow up with PCP for recheck Activity Level: No Restrictions Discharge Diet: Heart Healthy (2 gm sodium, low fat) Follow Up Appointments: Provider,Not a Local [Primary Care Provider] - (Post hospital follow up 3-5 days, mastoiditis, otitis, HTN, pre-diabetes management Patient states he will make the appointment himself.) Forms: [employer] Info Instructions
[2023-10-27 12:20] LABS: Basophils Absolute Auto 0.04 K/uL (0.00-0.30); Basophils Percent Auto 0.6 % (0.0-3.0); Eosinophils Absolute Auto 0.19 K/uL (0.00-0.50); Eosinophils Percent Auto 2.9 % (0.0-7.0); Hematocrit 47.4 % (37.0-53.0); Hemoglobin* 16.8 gm/dL (13.5-17.5); Immature Granulocytes Abs Auto 0.01 K/uL (0.00-0.30); Immature Granulocytes Pct Auto 0.2 %; Lactate* 1.3 mmol/L (0.5-1.9); Lymphocytes Absolute Auto 1.54 K/uL (0.90-2.90); Lymphocytes Percent Auto 23.7 % (20-44); Mean Corpuscular HGB Conc 35 gm/dL (32-36); Mean Corpuscular Hemoglobin 33 pg (26-34); Mean Corpuscular Volume 94 fL (80-100); Monocytes Percent Auto 8.4 % (0.0-11.0); Neutrophils Absolute Auto 4.18 K/uL (1.7-7.0); Neutrophils Percent Auto 64.2 % (42.0-72.0); Platelet Count* 271 K/uL (140-440); RDW Coefficient of Variation % 12.2 % (11.5-15.5); Red Blood Count 5.06 m/uL (4.30-5.90); White Blood Count* 6.51 K/uL (4.50-11.00)
[2023-10-27 12:27] LABS: Slide Review Reflex No
--- NOTE | 2023-10-27 13:07 | PC.NURSE ---
Pt alert and oriented. Pt had complaints of pain ranging 5-8; see EMAR for intervention. Pt up independently in room. Pt's IV removed; catheter in place. Pt's ear drops given to . Pt discharged home with .
== END 2023-10-27 13:05 | disposition home or self-care (01) ==
LOC: ED 16:10 → MEDSURG 16:28
PROVIDERS: Physician Assistant; Admitting Provider Family Medicine; Emergency Provider Family Medicine; Visit Provider Family Medicine
DX: I10 Essential (primary) hypertension (principal)
CPT/HCPCS: 36415; 70480; 80048; 83036; 83605; 83880; 84145; 84443; 84484; 85025; 86140; 87081; 93005; 94761; 99284; 99285; A9270; G0378; J0295; J2270; J2405; J2543; J7030

== ENCOUNTER 2025-01-07 01:24 | Emergency (ER) | payer MEDICARE, SELFPAY ==
--- OUTSIDE RECORDS SUMMARY | 2022-01-06 08:01 | XMS_ITS | Continuity of Care Document ---
Author Organization [facility] Address [address] [address] [place] [address] Phone Care Team Providers Care Reach Truck Operator Name Role Phone Antonieta Novak CRNA Unavailable Unavailable Allergies, Adverse Reactions, Alerts Substance Reaction Status Criticality ibuprofen Active No Information HYDROCODONE BITARTRATE Difficulty breathing Active No Information acetaminophen Active No Information adhesive tape Active No Information Medications Medication Instructions Dosage Effective Dates (start - stop) Status Comments Adderall 10 mg tablet take 1 tablet by oral route every day 10 MG - Active torsemide 20 mg tablet take 3 tablet by oral route every 12 hours 60 MG - Active levothyroxine 100 mcg tablet take 1 tablet by oral route every day 100 MCG - Active omeprazole 40 mg capsule,delayed release take 1 capsule by oral route 2 times every day before a meal 40 MG - No Longer Active sucralfate 1 gram tablet take 1 tablet by oral route 4 times every day on an empty stomach 1 hour before meals and at bedtime 1 G - No Longer Active lamotrigine 200 mg tablet take 2 tablet by oral route every day 400 MG No Longer Active guanfacine 1 mg tablet take 1 tablet by oral route every day at bedtime 1 MG - No Longer Active AMPHETAMINE SULFATE (unknown strength) take 1 tablet by oral route 2 times every day given at 4-6 hour intervals Not Available - No Longer Active Linzess 290 mcg capsule take 1 capsule by oral route every day on an empty stomach at least 30 minutes before 1st meal of the day 290 MCG - No Longer Active Procedures Procedure Date Ugi Endo; W/bx 1/mx Colorectal Ca Screen Hi Risk I Level Iv-surg Path Gross/micro Offic/outpt E&m Estab Mod-hi 2 Routine Serum Collection cancelled appt Ugi Endo; W/insrt Guide Wire Ugi Endo; W/bx /mx Moderate sedation, initial 15 minutes Se Offic/outpt E&m Estab Mod-hi 2 17 Subsqt Hosp-da E&m Minr Compl 6 Subsqt Hosp-da E&m Minr Compl 6 Subsqt Hosp-da E&m Minr Compl 6 Subsqt Hosp-da E&m Minr Compl 6 Subsqt Hosp-da E&m Minr Compl 6 Subsqt Hosp-da E&m Minr Compl 6 Subsqt Hosp-da E&m Minr Compl 6 Init Hosp-da E&m Mod Severity 6 Advance Directives Directive Yes / No Effective Date File Name No Information Encounters Encounter Description Practice Location Reason(s) For Visit Diagnoses Date Provider Providers Copied on Encounter [facility] JOSE E SN[address] [address], [place], [id number], [place] tel:[phone] [facility] No Information 2 Scarlet Fung. [address] [facility] [address], [address], [place], [place], [address], [place]. tel:[phone] Referring Provider: Libertad Calvo, [address] [facility] [address], [place], [address] . tel:[phone] [facility], [address] [address], [place], [address], [place] tel:[phone] [facility] GI Symptoms or Concerns (chief complaint) Gastrojejunal ulcer, unsp as acute or chr, w/o hemor or perfHistory of Kyle-en-Y gastric bypassGastroe sophageal reflux disease with esophagitis without hemorrhageCol on cancer screeningFami ly history of colonic polypsEncount er for screening for malignant neoplasm of colonGastroje junal ulcer, unsp as acute or chr, w/o hemor or perfGastro-es ophageal reflux disease with esophagitis, without bleedingFamil y history of colonic polyps 2 Regulo Maurer. [address] [place] [address], [place] [address], [place], [place], [address], [place]. tel:[phone] Victor Hugo Prather MD. tel:[phone] erring Provider: Referral Self, USE FOR SELF REFERRALS. Offic/outpt E&m Estab Mod-hi 2 [facility] CLAUDIO, [address] [address], [place], [id number], [place] tel:[phone] [facility] GI Symptoms or Concerns (chief complaint) Chronic constipationM arginal ulcerWeight gainAdenomato us polyp of colon, unspecified part of colon 2 Regulo Maurer. [address] [place] [address], [place] [address], [place], [place], [address], [place]. tel:[phone] Iman Stevens MD. tel:[phone] erring Provider: Victor Hugo Prather MD A, [address], [place], [address]. tel:[phone] [facility] [place], [address] [address], [place], [address], [place] tel:[phone] No Information 2 No Information Referring Provider: Leydi Menjivar CNP M, [address] [place], [address]. tel:[phone] [facility], [address] [address], [place], [address], [place] tel:[phone] [facility] No Information No Information Referring Provider: Iman Ramos, [address] [place], [address]. tel:[phone] [facility] [place], [address] [address], [place], [address], [place] tel:[phone] [facility] No Information Geni KUMAR Wendy Nj. [address] [facility] [address], [address], [place], [place], [address], [place]. tel:[phone] Referring Provider: Iman Ramos, [address] [place], [address]. tel:[phone] Offic/outpt E&m Estab Mod-hi 2 [facility] [place], [address] [address], [place], [id number], [place] tel:[phone] [facility] GI Symptoms or Concerns (chief complaint) Right flank painFatty liver disease, nonalcoholicE levated LFTsNauseaMes enteric adenitis No Information Referring Provider: Iman Ramos, [address] [place] [address], [address]. tel:[phone] Subsqt Hosp-da E&m Minr Compl [facility], [address] [address], [place], [address], [place] tel:[phone] [facility] No Information 6 Maury Mcclelland. [address] [facility] [address], [address], [place], [place], [address], [place]. tel:[phone] Referring Provider: Krystin Mendiola NP P, [address] [facility] [address], [place], [address] . tel:[phone] Subsqt Hosp-da E&m Minr Compl [facility] [place], [address] [address], [place], [address], [place] tel:[phone] [facility] No Information 6 Miguel Umaña. [address] [facility], [facility] [address], [place], [place], [address], [place]. tel:[phone] Referring Provider: Chasidy Fox, [address] [facility] [address], [place], [address] . tel:[phone] Subsqt Hosp-da E&m Minr Compl [facility], [address] [address], [place] [facility], [address], [place] tel:[phone] [facility] No Information 6 Miguel Umaña. [address] [facility] [address], [facility] [address], [place], [place], [address], [place]. tel:[phone] Referring Provider: Chasidy Fox, [address] [facility] [address], [place], [address] . tel:[phone] Subsqt Hosp-da E&m Minr Compl [facility], [address] [address], [facility] [place], [address], [place] tel:[phone] [facility] No Information 6 Aria Kaplan. [address] [facility] [address], [facility] [address], [place], [place], [address], [place]. tel:[phone] Referring Provider: Cristine Hogue MD, [address] [place] [address], [place], [address]. tel:[phone] [facility], [address] [address], [facility] [place] [address], [place] tel:[phone] [facility] Acute pancreatitis, unspecified complication status, unspecified pancreatitis type 6 Maury Mcclelland. [address] [facility], [facility] [address], [place], [place], [address], [place]. tel:[phone] Referring Provider: Referral Self, USE FOR SELF REFERRALS. Subsqt Hosp-da E&m Minr Compl [facility], [address] [address], [place], [address], [place] tel:[phone] [facility] No Information 6 Maury Mcclelland. [address] [place] [address], [address], [address], . [phone] Referring Provider: Krystin Mendiola NP P, [address] [facility] [address], [place], [address] . tel:[phone] In Hosp-da E&m Mod Severity [facility], [address] [address], [place], [place], [address], tel:[phone] [facility] No Information 6 Aria Kaplan. [address] [place] [address], [facility] [address], [address], . [phone] Referring Provider: Eusebio Knapp MD, [address] [place] [address], [place], [address] . tel:[phone] Family History Family Member Type Diagnosis Age At Onset Mother Problem (finding) Colon polyps Father Problem (finding) Gallbladder disease Mother Problem (finding) Cancer, colon Problem (finding) Family history of reflu x disease Mother Problem (finding) ulcerative colitis Sister Problem (finding) Asthma Sister Problem (finding) Thyroid disorder Father Problem (finding) Cancer, lung Sister Problem (finding) alcoholism Father Problem (finding) Cancer, unknown Father Problem (finding) Asthma Sister Problem (finding) Cancer, breast Sister Problem (finding) Cancer, colon Sister Problem (finding) GERD Mother Problem (finding) Cancer, breast Sister Problem (finding) Celiac disease Mother Problem (finding) reflux disease Mother Problem (finding) Hemochromatosis Mother Problem (finding) diverticulitis of colon Sister Problem (finding) Gallbladder disease Mother Problem (finding) Asthma Father Problem (finding) GERD Father Problem (finding) Colon polyps Sister Problem (finding) Cancer, unknown Mother Problem (finding) Crohn's disease Mother Problem (finding) Thyroid disorder Father Problem (finding) Irritable bowel syndrom e Sister Problem (finding) Peptic ulcer disease Father Problem (finding) Peptic ulcer disease Mother Problem (finding) Peptic ulcer disease Father Problem (finding) Cirrhosis Mother Problem (finding) malignant neoplasm of p harynx Sister Problem (finding) Colon polyps Father Problem (finding) Thyroid disorder Immunizations Vaccine Date Status Comments SARS-COV-2 (COVID-19) vaccin e, mRNA, spike protein, LNP, preservative free, 30 mcg/0.3mL dose administered Note: [facility] bi-direct ional interface ; Source: Other Registry SARS-COV-2 (COVID-19) vaccin e, mRNA, spike protein, LNP, preservative free, 30 mcg/0.3mL dose administered Note: [facility] bi-direct ional interface ; Source: Other Registry Engerix-B administered Note: [facility] bi-d irectional interface ; Source: Other Registry Afluria Qd administered Note: [facility] bi-directional interface ; Source: Other Registry Afluria Qd administered Note: [facility] bi-directional interface ; Source: Other Registry Afluria Qd administered Note: [facility] bi-directional interface ; Source: Other Registry tetanus toxoid, reduced diphtheria toxoid, and acellular pertussis vaccine, adsorbed administered Note: [facility] b i-directional interface ; Source: Other Registry Pneumovax 23 administered Note: [facility] bi-d irectional interface ; Source: Other Registry Influenza, seasonal, injectable administe red Note: [facility] bi- directional interface ; Source: Other Registry Influenza, seasonal, injectable administe red Note: [facility] bi- directional interface ; Source: Other Registry measles, mumps and rubella v irus vaccine administered Note: [facility] bi-direct ional interface ; Source: Other Registry Payers Payer name Insurance type Covered green party ID Authoriza tidonta(s) Medicare NGS MB [id number] Social History Type Description Quantity Date Captured Comments Sex Male Smoking Status No Information Chief Complaint And Reason For Visit No Information Reason For Referral Reason For Referral No Information Plan Of Treatment Date Type Action Status Referral Ordered: Thyroid [place] Profile Appointment date/timeframe: First Available ordered Referral Ordered: CT Abdomen And Pelvis WITHOUT And WITH Contrast Appointment date/timeframe: -today ordered History Of Present Illness Encounter Date Complaint History Of Prese nt Illness GI Symptoms or Concerns GI Symptoms or Concerns PRIOR DI AGNOSTICS-- EGD on 01/03/2017 for abdominal pain in the right upper quadrant and dysphagia - LA grade B reflux esophagitis. Widely patent Schatzki's ring. Dilated. Gastritis. Normal duodenum. Duodenal biopsies were normal. Gastric biopsies with slight nonspecific chronic inflammatory change. Distal esophageal biopsies with mild chronic inflammatory change. Middle esophageal biopsies were unremarkable.-- Colonoscopy on 01/03/2017 for abdominal pain in the right upper quadrant, 1st colonoscopy - 3 polyps removed. One was a tubular adenoma. 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 Haji at [facility]).-- EGD on 03/04/2020 for epigastric abdominal pain, iron-deficiency anemia - nonbleeding gastric ulcer with adherent clot was found at the anastomosis. Biopsies taken of the anastomotic site demonstrated patchy active enteritis with erosion. Background reactive changes. Negative for celiac or other enteropathy.- GI Symptoms or Concerns SUBJECTI VEMr. Galvez comes for followup at his right request through the office of his primary care provider Iman Stevens.He was last seen in March 2016 when he was hospitalized at [facility] with pancreatitis, etiology secondary to hypertriglyceridemia. That situation apparently resolved without significant pancreatic sequelae.The patient reports back pain along the right side of his back from the lumbar area down to the right buttock and around to the right side along the mid clavicular line. This tends not to extend to the front of the abdomen and therefore seems extra-abdominal. On further discussion, he does state that he occasionally has some right lower quadrant discomfort, although it is mostly in his back. This is always present and is described as an achy sensation that is quite difficult to deal with. He also has concomitant nausea with occasional emesis, abdominal swelling, and bloating, which he describes as a rock hard abdomen. Functional Status Date Functional Assessmen t No Information Instructions Date Instruction Additional Infor sadi Gastroesophageal Reflux Disease Related to Gastrojejunal ulcer, unsp as acute or chr, w/o hemor or perf 1. I recommend the p atient follow up with his billboard poster helper for both his history of coronary artery disease for cardiac clearance for EGD and colonoscopy.2. The endoscopic procedure with biopsy will be scheduled in three weeks. Hopefully, he will be cleared to them done at that time. Based on cardiology evaluation, they may need to be performed at a hospital.3. In the interim, recommended a gastric emptying study four hours.4. I discussed six small low fat meals with the patients that have three meals to promote gastric emptying. I also recommend that he take his Nexium 40 mg daily one half hour before breakfast instead of p.r.n.5. Okay to take Zocor from a gastroenterology perspective. I would monitor his liver function testing as long as they do not elevate more than three times normal. He can continue to take that medication.6. Strongly recommend he follow up with an station helper for treatment of his diabetes and metabolic syndromes as well as his hypertriglyceridemia.7. I see no reason to repeat his CAT scan today given that his symptoms are relatively chronic and he has two unchanged CT scans from June and November 2016. However, if his pain continues to increase then he may need to have another cat scan performed in the near term to make sure he does not have an evolving intra-abdominal process. Conversely if he continues to have significant abdominal pain and cannot be managed as an outpatient, perhaps elective inpatient hospitalization may be necessary. Although at this point, I see no reason to proceed in this direction.8. The patient will otherwise follow up with his primary care provider and contact our office with any problems, questions, or concerns regarding the above.9. Thank you for allowing me to participate in this patient's healthcare. Please call with any further questions. Related to Right flank pain Gastric Emptying Study (4 Hours) Assessments Type Assessment Date No Information Patient Care Teams Name Effective Dates (start - stop) Status Members No Information
--- OUTSIDE RECORDS SUMMARY | 2022-01-06 08:01 | XMS_ITS | Continuity of Care Document ---
Author Organization [facility] Address [address] [address] [place] [address] Phone Care Team Providers Care Coal Tower Operator Name Role Phone Antonieta Novak CRNA [...] Diagnoses Date Provider Providers Copied on Encounter [facility] JOSE E SNY[address] [address], [place], [id number], [place] tel:[phone] [facility] No Information 2 Scarlet Fung. [address] [facility], [address], [place], [place], [address], [place]. tel:[phone] Referring Provider: Libertad Calvo, [address] [facility] [address], [place], [address] . tel:[phone] [facility], [address] [address], [place], [address], [place] tel:[phone] [facility] GI Symptoms or Concerns (chief [...] history of colonic polyps 2 Regulo Maurer. [address] [place] [address], [place] [address], [place], [place], [address], [place]. tel:[phone] Victor Hugo Prather MD. tel:[phone] erring Provider: Referral Self, USE FOR SELF REFERRALS. Offic/outpt E&m Estab Mod-hi 2 [facility] CLAUDIO, [address] [address], [place], [address], [place] tel:[phone] [facility] GI Symptoms or Concerns (chief complaint) Chronic constipationM arginal ulcerWeight gainAdenomato us polyp of colon, unspecified part of colon 2 Regulo Maurer. [address] [place] [address], [place] [address], [place], [place], [address], [place]. tel:[phone] Iman Stevens MD. tel:[phone] erring Provider: Victor Hugo Prather MD A, [address], [place], [address]. tel:[phone] [facility] [place]IO, [address] [address], [place], [address], [place] tel:[phone] No Information 2 No Information Referring Provider: Leydi Menjivar CNP M, [address] [place], [address]. tel:[phone] [facility], [address] [address], [place], [address], [place] tel:[phone] [facility] No Information No Information Referring Provider: Iman Ramos, [address] [place], [address]. tel:[phone] [facility] [place], [address] [address], [place], [address], [place] tel:[phone] [facility] No Information Geni KUMAR Wendy Nj. [address] [facility], [address], [place], [place], [address], [place]. tel:[phone] Referring Provider: Iman Ramos, [address] [place], [address]. tel:[phone] Offic/outpt E&m Estab Mod-hi 2 [facility], [address] [address], [place], [address], [place] tel:[phone] [facility] GI Symptoms or Concerns (chief complaint) Right flank painFatty liver disease, nonalcoholicE levated LFTsNauseaMes enteric adenitis No Information Referring Provider: Iman Ramos, [address] [place] [address], [address]. tel:[phone] Subsqt Hosp-da E&m Minr Compl [facility] [place], [address] [address], [place], [address], [place] tel:[phone] [facility] No Information 6 Maury Mcclelland. [address] [facility], [address], [place], [place], [address], [place]. tel:[phone] Referring Provider: Krystin Mendiola NP P, [address] [facility] [address], [place], [address] . tel:[phone] Subsqt Hosp-da E&m Minr Compl [facility], [address] [address], [place], [address], [place] tel:[phone] [facility] No Information 6 Miguel Umaña. [address] [facility], [facility] [address], [place], [place], [address], [place]. tel:[phone] Referring Provider: Chasidy Fox, [address] [facility] [address], [place], [address] . tel:[phone] Subsqt Hosp-da E&m Minr Compl [facility], [address] [address], [place], [address], [place] tel:[phone] [facility] No Information 6 Miguel Umaña. [address] [facility], [facility] [address], [place], [place], [address], [place]. tel:[phone] Referring Provider: Chasidy Fox, [address] [facility] [address], [place], [address] . tel:[phone] Subsqt Hosp-da E&m Minr Compl [facility], [address] [address], [place] [facility] [place], [address], [place] tel:[phone] [facility] No Information 6 Aria Kaplan. [address] [facility], [facility] [address], [place], [place], [address], [place]. tel:[phone] Referring Provider: Cristine Hogue MD, [address] [place] [address], [place], [address]. tel:[phone] [facility], [address] [address], [facility] [place], [address], [place] tel:[phone] [facility] Acute pancreatitis, unspecified complication status, unspecified pancreatitis type 6 Maury Mcclelland. [address] [facility], [facility] [address], [place], [place], [address], [place]. tel:[phone] Referring Provider: Referral Self, USE FOR SELF REFERRALS. Subsqt Hosp-da E&m Minr Compl [facility], [address] [address], [place], [address], [place] tel:[phone] [facility] No Information 6 Maury Mcclelland. [address] [place] [address], [address], [id number], . [phone] Referring Provider: Krystin Mendiola NP P, [address] [facility] [address], [place], [address] . tel:[phone] In Hosp-da E&m Mod Severity [facility], [address] [address], [place], [place], [address], tel:[phone] [facility] No Information 6 Aria Kaplan. [address] [place] [address], [facility] [address], [place], [address], . [phone] Referring Provider: Eusebio Knapp MD, [address] [place] [address] [address], [place], [address] . tel:[phone] Family History Family Member Type Diagnosis Age [...] party ID Authoriza tidonta(s) Medicare NGS MB [id number] Social History Type Description Quantity Date Captured Comments Sex Male Smoking Status No Information Chief Complaint And Reason For Visit No Information Reason For Referral Reason For Referral No Information Plan Of Treatment Date Type Action Status Referral Ordered: Thyroid [place] Profile Appointment date/timeframe: First Available ordered Referral [...] gastric bypass on 05/30/2018 (Dr. Haji at [facility]).-- EGD on 03/04/2020 for epigastric abdominal pain, [...] March 2016 when he was hospitalized at [facility] with pancreatitis, etiology secondary to [...] the p atient follow up with his online media director for both his history of coronary artery [...] Strongly recommend he follow up with an circulating process inspector for treatment of his diabetes and metabolic [...]
--- OUTSIDE RECORDS SUMMARY | 2025-01-07 01:26 | XMS_ITS | Clinical Summary ---
Author Organization [facility] [employer] [facility] Address [address] [place] [address] Care Team Providers Care Body Shop Floorperson Name Role Phone Vincent Leyva MD Unavailable Unava ilable Dustin Mcgee MD Unavailable [phone] Jose Morales MD Unavailable Victor Hugo Prather MD Unavailable [facility] Primary Care Provider Allergies Active Allergy Reactions Criticality Noted Date Comments Acetaminophen Nausea Only 10/07/2021 Hydrocodone Bitartrate Shortness Of Breath 09/17 Ibuprofen Bleeding 12/23/2018 Patient reports hx of weight loss surgery and stomach ulcer Nsaids (Non-Steroidal Anti-Inflammatory Drug) Other - Describe In Comment Field 09/30/2021 H/o robbi-n-y gastric bypass. AVOID NSAIDs and aspirin due to risk of gastric and/or G-J anastomotic ulcers. If Claudy must be on short course of NSAIDs or aspirin, use enteric coated if possible and use PPI // Annalise Cano RN, Bariatric Nurse Clinician, [facility] Weight Management 09/30/2021 Adhesive Rash,Erythema 01/22/2011 rash, only with 3M [place] (silky) tape. Clear and paper tape ok. Hydrocodone-Acetaminoph en Nausea Only,Dizziness 03/20/2018 Medications calcium citrate-vitamin D3, 315 mg-250 units, (CITRUS CALCIUM) 315-250 mg-unit tab tablet Take 1500mg daily in divided doses with meals 90 tablet Active lamoTRIgine (LAMICTAL) 200 mg tabletIndications: Bipolar disease, manic (HC) TAKE ONE TABLET BY MOUTH EVERY DAY 30 tablet 5 01/18/20 19 Active nitroglycerin (NITROSTAT) 0.4 mg sublingual tabletIndications: Abnormal nuclear stress test Place 1 Tablet (0.4 mg) under the tongue every 5 minutes if needed for Chest Pain. 30 tablet. 11 02/27/20 21 Active clotrimazole (LOTRIMIN) 1 % creamIndications:Y east dermatitis Apply topically to affected area(s) 2 times daily. 45 g 1 02/27/20 21 Active lancetsIndications :Type 2 diabetes mellitus with hyperglycemia, with long-term current use of insulin (HC) Test 4 times per day. 400 Each 3 02/27/20 21 Active levothyroxine (SYNTHROID) 100 mcg tabletIndications: Goiter,Hypothyroid ism due to acquired atrophy of thyroid Take 1 Tablet (100 mcg) by mouth once daily. 90 Tablet 3 03/09/20 21 Active omeprazole (PRILOSEC) 40 mg Delayed-Release capsuleIndications :Gastric ulcer, unspecified chronicity, unspecified whether gastric ulcer hemorrhage or perforation present TAKE ONE CAPSULE BY MOUTH TWICE A DAY 180 Capsule 04/30/19 22 Active sildenafil citrate (VIAGRA) 100 mg tabletIndications: Erectile dysfunction, unspecified erectile dysfunction type TAKE ONE TABLET BY MOUTH EVERY DAY NEEDED FOR ERECTILE DYSFUNCTION, TAKE 30 MINUTES TO 4 HOURS BEFORE SEXUAL ACTIVITY, MAXIMUM OF 100MG IN 24 HOURS 90 Tablet 3 05/19/19 22 Active Amphetamine-Dextro amphetamine (ADDERALL) 30 mg tablet TAKE ONE TABLET BY MOUTH EVERY DAY IN THE AFTERNOON 07/10/19 22 Active guanFACINE (TENEX) 2 mg tablet Take 2 mg by mouth at bedtime. 06/25/19 22 Active cyanocobalamin (VITAMIN B12) 1,000 mcg sublingual tabletIndications: Screening for endocrine, nutritional, metabolic and immunity disorder Place 1 Tablet (1,000 mcg) under the tongue once daily. 0 Active Pediatric Multivitamins-Iron chewable tabletIndications: Screening for endocrine, nutritional, metabolic and immunity disorder Chew 2 Tablets by mouth once daily. 0 Active cholecalciferol, Vitamin D3, (Vitamin D-3) 5,000 unit tab tabletIndications: Screening for endocrine, nutritional, metabolic and immunity disorder Take 1 Tablet (5,000 units) by mouth once daily. 30 Tablet 11 09/05/19 22 Active sucralfate (CARAFATE) 1 gram tabletIndications: Marginal ulcer TAKE ONE TABLET BY MOUTH FOUR TIMES A DAY WITH MEALS AND AT BEDTIME 360 Tablet 11/03/19 22 Active torsemide (DEMADEX) 20 mg tabletIndications: Acute diastolic heart failure (HC) TAKE ONE TABLET BY MOUTH TWICE A DAY 180 Tablet 12/24/19 22 Active rx ondansetron (ZOFRAN ODT) 4 mg orally disintegrating tablet (ED DC MED)Indications:Na usea Place 1 Tablet (4 mg) on the tongue every 8 hours if needed (nausea). 4 Tablet 03/03/20 22 Active meclizine (ANTIVERT) 25 mg tabletIndications: Vertigo Take 1 Tablet (25 mg) by mouth 3 times daily if needed for Vertigo. 12 Tablet 12/17/19 25 Active ondansetron (ZOFRAN ODT) 4 mg disintegrating tabletIndications: Vertigo Place 2 Tablets (8 mg) on the tongue every 8 hours if needed for Nausea/Vomiti ng. 12 Tablet 12/17/19 25 Active amoxicillin-clavul anate (AUGMENTIN) 875-125 mg tabletIndications: Acute otitis externa of left ear, unspecified type Take 1 Tablet by mouth every 12 hours for 7 days. 14 Tablet 01/07/20 25 025 Active ciprofloxacin-dexA METHasone (CIPRODEX) otic suspensionIndicati ons:Acute otitis externa of left ear, unspecified type Place 4 Drops into left ear two times daily for 6 days. 5 mL 01/07/20 25 025 Active ciprofloxacin-dexA METHasone (CIPRODEX) otic suspension (ED DC MED)Indications:Ot itis externa, unspecified chronicity, unspecified laterality, unspecified type Place 4 Drops into left ear two times daily. 7.5 mL 10/25/19 24 025 Discontin ued(*Med complete/ Regimen complete/ Level of care change) Active Problems Problem Noted Date Diagnosed Date S/P laparoscopic cholecystectomy 11/10/2018 Overview (11/10/2018): Dr. Prather Cholecystitis 11/09/2018 Robotic assisted robbi-en-y gastric bypass 2018 Overview (05/30/2018): Dr. Haji RUQ pain 04/10/2018 NAFLD (nonalcoholic fatty liver disease) 018 Overview (12/27/2017): 11/04/17 Diffuse fatty infiltration of the liver Vitamin D deficiency 11/30/2017 Overview (11/30/2017): Results for CLAUDY GALVEZ ( ) as of 11/30/2017 13:14 Ref. Range 11/29/2017 09:11 VITAMIN D TOTAL Latest Ref Range: 30.0 - 80.0 ng/mL 16.7 (L) S/P CABG x 3 04/29/2017 Overview (04/29/2017): 04/28/17 s/p Coronary artery bypass graft surgery x3 (left internal mammary artery to left anterior descending artery and reverse saphenous vein grafts to the obtuse marginal branch of circumflex coronary artery and distal right coronary artery). NSTEMI (non-ST elevated myocardial infarction) 0 04/25/2017 Mesenteric adenitis 12/09/2016 Fatty liver disease, nonalcoholic 12/09/2016 Elevated triglycerides with high cholesterol ASHD (arteriosclerotic heart disease) 12/03/2016 Overview (04/25/2017): - 12/03/16 angiogram: left main coronary artery had a 20% distal stenosis. The LAD was totally occluded in the proximal midvessel, with extensive gpzmd-cg-ojpf and fart-kg-hozr collaterals. The codominant circumflex had a 50% stenosis in the distal vessel. The right coronary artery was codominant and had a 40% stenosis in the proximal vessel. The left ventricular pressure was 123/18. Left ventriculography demonstrated normal LV function, with an ejection fraction of 60%, and there were no regional wall motion abnormalities. In summary, he has a chronic occlusion of the LAD with extensive collaterals History of MRSA infection 06/17/2016 Overview (12/21/2016): Negative MRSA nasal swab 12/03/16 Acute pancreatitis without infection or necrosis 03/27/2016 JAQUAN 01/19/2016 ; AHI- 50 03/16/2016 Hyperlipidemia type IV 12/31/2015 Type 2 diabetes mellitus wit h hyperglycemia, with long-term current use of insulin 12/31/2015 Steatohepatitis, nonalcoholic 07/16/2014 Hypertension 03/23/2011 Hypothyroidism 03/23/2011 Tobacco abuse 01/21/2011 Chest pain, unspecified 01/21/2011 Overview (03/23/2011): negative cardiac work up 2010 including cath. Amphetamine and other psychostimulant dependence , episodic 09/11/2009 Unspecified personality disorder 09/11/2009 Bipolar disorder, unspecified 03/21/2009 Overview (08/02/2012): managed by psychiatry Attention deficit disorder with hyperactivity Goiter Uncontrolled type 2 diabetes mellitus with hyperglycemia, with long-term current use of insulin Hypoxemia Acute diastolic heart failure Marginal ulcer Polyp of colon Resolved Problems Problem Noted Date Diagnosed Date Resolved Date Morbid obesity 05/30/2018 05/30/2019 Morbid obesity 07/20/2017 05/30/2019 Unstable angina 12/03/2016 04/25/2017 Acute pancreatitis with infected necrosis 04/05/2016 11/17/2016 Hypertriglyceridemia 03/27/2016 017 Dilutional hyponatremia 12/31/201503/18 Diabetic ketoacidosis withou t coma associated with type 2 diabetes mellitus 12/30/2015 04/03/2016 DM (diabetes mellitus), type 2, uncontrolled 5 11/17/2016 Hyperglycemia due to type 2 diabetes mellitus 07/16/19 15 07/19/2014 Acute hepatitis 07/15/2014 07/16/2014 Strep pharyngitis 07/15/2014 07/19/2014 Low testosterone 08/09/2012 03/28/2013 Overview (08/09/2012): referral completed to endocrine JAQUAN (obstructive sleep apnea) 03/25/2011 11/17/2016 Cough 01/22/2011 03/23/2011 Bipolar disorder, unspecified 06/22/2010 09/11/2010 Influenza with other respira tory manifestations 06/21/2010 03/23/2011 Type 2 diabetes mellitus with hyperglycemia 11/17/2016 Acquired hypothyroidism 05/2016 Acute kidney failure, unspecified 11/17/2016 Encounters Date Type Department Care Team Description 01/06/2025 3:31 AM CDT - 01/06/2025 4:53 AM CDT Emergency [facility] [address] [place] [address] Abimael Pendleton MD Acute otitis externa of left ear, unspecified type (Primary Dx) Discharge Disposition: Home Self Care 01/06/2025 Travel 12/16/2024 2:37 AM CDT - 12/16/2024 5:33 AM CDT Emergency [facility] [address] [place] [address] Jose Cruz Matson MD Vertigo (Primary Dx) Discharge Disposition: Home Self Care 12/16/2024 Travel from Last 3 Months Immunizations Immunization Administration Dates Next Due Hepatitis B (Adult) 05/07/2020 Influenza, IIV3 (Age >=3 years) 03/15/2006,02/26 Influenza, IIV4 02/26/2021,,01/23/2019,2016,12/29/2015 MMR 08/19/1993 Pneumococcal Poly,23-Valent (Pneumovax) 10/22/2010 Td (Age >=7 Years) 01/22/2003,09/04/1991 Tdap 08/02/2012 Tuberculin (PPD) 03/23/2011 Family History Medical History Relation Name Comments Allergies Father Arthritis Father COPD Father Coronary artery disease Father Diabetes Father Heart Disease Father CAD. Hyperlipidemia Father Hypertension Father Obesity Father Thyroid Disease Father Cancer Maternal Grandfather skin Cancer Maternal Uncle Arthritis Mother Asthma Mother COPD Mother Cancer Paternal Aunt pancrease Alcohol/Drug Paternal Grandfather Coronary artery disease Paternal Grandfather Hyperlipidemia Paternal Grandfather Hypertension Paternal Grandfather Cancer Paternal Grandmother lung Diabetes Paternal Grandmother Heart Disease Paternal Grandmother Hyperlipidemia Paternal Grandmother Hypertension Paternal Grandmother Kidney failure Paternal Grandmother Stroke Paternal Grandmother Diabetes Sister 2 Heart Disease Sister 2 Obesity Sister 2 Relation Name Status Comments Daughter 1 Alive Daughter 2 Alive Father CAD. Maternal Grandfather Maternal Grandmother Alive Maternal Uncle Mother Alive Paternal Aunt Paternal Grandfather Paternal Grandmother Sister 1 Alive Sister 2 Son 1 Alive Son 2 Alive Social History Tobacco Use Types Packs/Day Years Used Date Smoking Tobacco: Every Day Cigarettes 0.5 20 Started: 1997; Last attempted to quit: 2017 Smokeless Tobacco: Never Tobacco Cessation:Ready to Q uit: Yes; Counseling Given: Yes Alcohol Use Standard Drinks/Week Comments Yes 0 (1 standard drink = 0.6 oz pur e alcohol) occasion PHQ-2 Answer Date Recorded PHQ-2 TOTAL SCORE 2 05/07/2020 Social Connections Answer Date Recorded Frequency of Communication with Friends and Fami ly Not on file 08/07/2022 Financial Resource Strain Answer Date R ecorded Difficulty of Paying Living Expenses 3 08/06/2021 Difficulty of Paying Living Expenses Not on file 08/06/2021 Food Insecurity Answer Date Recorded Worried About Running Out of Food in the Last Ye ar 1 08/06/2021 Transportation Needs Answer Date Record ed Lack of Transportation (Medical) 2 08/06/2021 Housing Stability Answer Date Recorded Unable to Pay for Housing in the Last Year 1 08/06/2021 Interpersonal Safety Answer Date Record ed Are you being hit, kicked, p ushed or yelled at (see row info)? No 01/06/2025 Interpersonal Safety Abuse 12 - 18 Not on file 01/06/2025 Interpersonal Safety Ambulatory Vulnerability No t on file 01/06/2025 Sex and Gender Information Value Date Recorded Sex Assigned at Not on file Legal Sex Male 5:23 AM LEAD ARCHITECT Gender Identity Not on file Sexual Orientation Not on file Occupation Industry Job Start Date Job End Date Not on file Not on file Not on file Not on file Obstetrics History Last Filed Vital Signs Vital Sign Reading Time Taken Comments Blood Pressure 197/120 01/06/2025 3:40 AM CDT Pulse 89 01/06/2025 3:40 AM CDT Temperature 36.2 C (97.1 F) 01/06/2025 3:40 AM CDT Respiratory Rate 20 01/06/2025 3:40 AM CDT Oxygen Saturation 98% 01/06/2025 3:40 AM CDT Inhaled Oxygen Concentration - - Weight 76.2 kg (168 lb) 01/06/2025 3:40 AM CDT Height 167.6 cm (5' 6) 01/06/2025 3:40 AM CDT Body Mass Index 27.12 01/06/2025 3:40 AM CDT Plan of Treatment Health Maintenance Due Date Last Done Comments Pneumococcal series for age 50+ (2 of 2 - PCV) 10/23/2011 10/22/2010 Hepatitis B series for 19+ ( 2 of 3 - 19+ 3-dose series) 06/04/2020 05/07/2020 Depression screening for age 12+ 05/09/2021 05/09/2020, 05/08/2020, 05/07/2020, Additional history exists Tetanus booster 08/02/2022 08/02/2012, 10/2002, 01/22/2003, Additional history exists BMI (ht and wt on same day) for age 18+ 10/05/2022 10/05/2021, 09/09/2021, 09/04/2021, Additional history exists Zoster (shingles) series for age 50+ (1 of 2) 2024 COVID-19 vaccine series (2 - 2024- season) 2024 04/05/2021 Influenza Vaccine (#1) 2024 , 05/07/2020, 01/23/2019, Additional history exists Lipids for age 45-75 05/07/2025 05/07/2020, 03/30/2019, 03/14/2018, Additional history exists Colonoscopy through age 75 01/06/202701/06, 08/11/2021, 01/03/2017, Additional history exists RSV vaccine for adults or (1 - 1-dose 75+ series) 2049 HIV for age 15-65 Completed 04/28/2017 Hepatitis C screening for ag e 18-79 Completed 04/28/2017, 12/01/2016, 07/19/2014, Additional history exists Goals Goal Patient Goal Type Associated Problems Recent Progress Patient-Stated? Author BLOOD PRESSURE-MAINTA INS BP LESS THAN 130/80 Blood Pressure No Elly Collins RN BLOOD PRESSURE - MAINTAINS BP less than 140/90 Blood Pressure No Elly Collins RN Medical Devices Implanted Type Area Machinery Repair Maintenance Supervisor Device Identifier Shelf Expiration Date Model / Serial / Lot Mesh Ventral 45 Seamguard Endo [employer] White/Blue - [id number] Implanted:Qty: 7 on 05/30/2018 by Elia Haji MD at [facility] Stomach W [place] [id number] # / / Procedures Procedure Name Priority Date/Time Associated Diagnosis Comments SCAN-COLONOSCOPY 01/06/2022 1:00 PM CDT LIPID PANEL Routine 05/07/2020 8:27 AM LEAD ARCHITECT Controlled type 2 diabetes mellitus with hyperglycemia, with long-term current use of insulin (HC) EXPOSURE (BBF) RAPID HIV STAT 04/28/2017 12:32 PM LEAD ARCHITECT EXPOSURE (BBF) ANTI HCV STAT 04/28/2017 12:32 PM LEAD ARCHITECT from Last 3 Months or Most Recently Relevant to Health Maintenance Results * SCAN-COLONOSCOPY (01/06/2022 1:00 PM CDT) Narrative Procedure Note Libertad Rajput MD - 01/06/2022 11:50 AM CDT [facility] [address] [place] [address], [address], [place] [address] Patient Name: Claudy Galvez Gender: Male Exam Date: 01/06/2022 Visit Number: [id number] Age: 46 Years Date of : 1975 Attending MD: Libertad Rajput MD Medical Record#: [id number] Procedure: Colonoscopy Indications: Colorectal cancer screening Family history of polyps Referring MD: Referral Self Primary MD: Leydi Menjivar RIB CUTTER Medications: Admitting Medications: 0.9% Normal Saline at TKO Intra Procedure Medications: Patient received monitored anesthesia care. Complications: No immediate complications Procedure: An examination of the heart and lungs was performed and found to be withinacceptable limits. . The patient was therefore deemed a reasonablecandidate for endoscopy and sedation. The risks and benefits of the procedure were explained to the patient.After obtaining informed consent, the patient received monitoredanesthesia care and I passed the scope without difficulty via the rectum to the ileum. The appendiceal orificeand ic valve were identified. The scope was retroflexed during theexamination The quality of the prep was good (Miralax/Gatorade/2 tabletsBisacodyl/Magnesium Citrate). This was a complete examination throughout the entire colon. Findings: The entire colon was normal. Impression: Colon cancer screening Family history of colonic polyps Preliminary Plan: Repeat colonoscopy in 5 years for family history Procedure: Upper GI Endoscopy Indications: Abdominal Pain Improved with omeprazole 40 mg BID, sucralfate QID Follow up of marginal ulcer Provider: Libertad Rajput MD Referring MD: Referral Self Primary MD: Leydi Menjivar [facility] Medications: Admitting Medication: 0.9% Normal Saline at [facility] Intra Procedure Medications: Patient received monitored anesthesia care. Complications: No immediate complications Procedure: An examination of the heart and lungs was performed within acceptablelimits. . The patient was therefore deemed a reasonable candidate forsedation. The risks and benefits were explained to the patient, who appeared tounderstand. After obtaining informed consent, the scope was passed underdirect vision. Throughout the procedure the patient's blood pressure,pulse and oxygen saturations were monitored. The scope was introducedthrough the mouth and advanced to the second portion of duodenum. Findings: Esophagus: The z-line is 38 centimeters from the incisors. Top of the gastric foldsis 38 centimeters from the incisors. Esophagitis. Location - distal esophagus. Description - Reflux. LAClassification - Grade A. Biopsy taken (distal esophageal biopsies). Stomach: H. Pylori biopsies taken. Previous surgical procedure:Gastric Bypass The diaphragm hiatus is at 38 centimeters from the incisors. Post Surgical Stomach. Previous Gastric Bypass. Finding - Ulcer. Location- anastomosis. Description - superficial.. Jejunum: Normal jejunum. Celiac Sprue biopsies taken. Impression: Marginal ulcer History of Robbi-en-Y gastric bypass Gastroesophageal reflux disease with esophagitis without hemorrhage Preliminary Plan: Recommendation Comments: I'm glad to hear that your abdominal pain hasimproved. Continue the omeprazole and the sucralfate indefinitely. Thisulcer is very superficial, and I think if you stop smoking, that it willheal completely. Keep working on that! Pathology Results: A: SMALL BOWEL, JEJUNUM, BIOPSY: 1. Normal jejunal mucosa 2. Negative for celiac disease and other enteropathy B: STOMACH, BIOPSY: 1. Normal gastric body mucosa 2. Negative for Helicobacter C: ESOPHAGUS, DISTAL, BIOPSY: 1. Changes consistent with reflux esophagitis 2. Negative for eosinophilic esophagitis 3. Negative for columnar mucosa MICROSCOPIC A: Performed B: Performed C: The histologic features include: Eosinophilia: 1/HPF Neutrophilia: None Papillary elongation: Present Basal layer hyperplasia: Present Electronically signed by: Yazan Gregg MD Interpreted at [facility], [address] [place] [address] Orders Instruction(s)/Education: Instruction/Education Timeframe Assessment Gastroesophageal Reflux Disease K28.9 _Electronically signed by: Libertad Rajput MD 01/06/2022 cc: Leydi Menjivar [facility] cc: Victor Hugo Prather MD Libertad Rajput MD OTHER Final Result * (ABNORMAL) LIPID PANEL (05/07/2020 8:27 AM LEAD ARCHITECT) CHOLESTEROL,TOTAL 196 100 - 199 mg/dL 05/07/2020 8:55 AM LEAD ARCHITECT [facility] TRIGLYCERIDES 163(H) <150 mg/dL 05/07/2020 8:55 AM LEAD ARCHITECT [facility] HDL CHOLESTEROL 38(L) >40 mg/dL 8:55 AM LEAD ARCHITECT [facility] NON-HDL CHOLESTEROL 158(H) <145 mg/dl 05/07/2020 8:55 AM LEAD ARCHITECT [facility] CHOL/HDL RATIO 5.16(H) <4.50 05/07/2020 8:55 AM LEAD ARCHITECT [facility] LDL CHOLESTEROL 125 <=130 mg/dL 05/07/2020 8:55 AM LEAD ARCHITECT [facility] PROVIDER ORDERED STATUS RANDOM 05/07/2020 8:55 AM LEAD ARCHITECT [facility] Blood BLOOD SPECIMEN / Unknown Venipuncture / Unknown 05/07/2020 8:27 AM LEAD ARCHITECT 05/07/2020 8:29 AM LEAD ARCHITECT us Ken Hendricks MD CHEMISTRY Final Result [facility] [address] [place] [address] * Patient Source Rapid HIV - Unknown HIV (04/28/2017 12:32 PM LEAD ARCHITECT) SOURCE RAPID HIV SCREEN Non-Reacti ve Non-Reacti ve 04/28/2017 1:13 PM LEAD ARCHITECT [facility] [employer] [facility] Blood BLOOD SPECIMEN / Unknown Non-Lab Venipuncture / Unknown 04/28/2017 12:32 PM LEAD ARCHITECT 04/28/2017 12:40 PM LEAD ARCHITECT us Tima Meyers MD SEND OUTS Final Resul t [facility] [address] [place] [address], [place] * Patient Source ANTI HCV (04/28/2017 12:32 PM LEAD ARCHITECT) HEPATITIS C ANTIBODY Non-Reacti ve Non-Reacti ve 04/28/2017 1:28 PM LEAD ARCHITECT [facility] [facility] Blood BLOOD SPECIMEN / Unknown Non-Lab Venipuncture / Unknown 04/28/2017 12:32 PM LEAD ARCHITECT 04/28/2017 12:40 PM LEAD ARCHITECT Narrative [facility] - 04/28/2017 1:28 PM LEAD ARCHITECT Antibodies to HCV not detected; does not exclude the possibility of exposure to HCV. us Tima Meyers MD SEND OUTS Final Resul t [facility] [address] [place] [address], from Last 3 Months or Most Recently Relevant to Health Maintenance Additional Health Concerns Infection Onset Date Last Indicated MRSA Clearance Comment:Infection Control Note: Hx of MRSA, surveillance criteria met, no need for further testing or isolation precautions. Do not delete or deactivate the FYI. #1 nasal 12/02/16 (negative) +MRSA 06/14/2016 neck 04/26/2017 04/26/2017 Insurance [facility] MEDICARE PART B HB ONLY MEDICA CHOICE MEDICARE PB ONLY Member Subscriber Plan / Payer (Ef fective 2014-Present) Name:Claudy Galvez Member ID:[id number] Relation to Subscriber:Self Name:Claudy Galvez Subscriber ID:[id number] Payer ID:Not on file Group ID:Not on file Type:Not on file Address: ATTN: CLAIMS [address] MEDICARE PART B HB ONLY MEDICARE PART A HB ONLY Member Subscriber Plan / Payer (Ef fective 2014-Present) Name:Claudy Galvez Member ID:[id number] Relation to Subscriber:Self Name:Claudy Galvez Subscriber ID:[id number] Payer ID:Not on file Group ID:Not on file Type:Not on file Address: ATTN: CLAIMS [address] Advance Directives * Full Code (Latest Code Status on File) Date Activated Date Inactivated Comments 08/11/2021 1:06 PM 08/11/2021 5:22 PM Question Answer Comments Code Status Discussion: Discussed * Full Code Date Activated Date Inactivated Comments 03/04/2020 1:58 PM 03/05/2020 2:33 AM Question Answer Comments Code Status Discussion: Discussed * Full Code Date Activated Date Inactivated Comments 11/10/2018 6:53 AM 11/10/2018 1:20 PM * Full Code Date Activated Date Inactivated Comments 05/30/2018 11:08 AM 05/31/2018 4:29 PM * Full Code Date Activated Date Inactivated Comments 05/19/2017 1:52 AM 05/20/2017 7:23 PM Care Teams Body Shop Floorperson Relationship Specialty Start Date End Date [facility] [address] [facility] [place] [address] PCP - General Family Practice 12/16/24 Vincent Leyva MD Cardiology Cardiovascular Disease 10/24/17 Dustin Mcgee MD [address] [facility] [address] [place] [address] Endocrinology Endocrinology 10/24/17 Jose Morales MD [address] [facility] [address] [place] [address] Urology Surgery - Urology 10/24/17 Victor Hugo Prather MD [address] [address] Consulting Physician Surgery - General 08/22/20
--- OUTSIDE RECORDS SUMMARY | 2025-01-07 01:27 | XMS_ITS | Clinical Summary ---
Author Organization [facility] Address [address] [place] [address] Care Team Providers Care Client Analyst Name Role Phone Duke Benites M.D. Primary Care P carlene Source Comments Patient records contain information from all sites at [facility]. For routine questions regarding patient records, call [phone] during business hours, M-F 8:00 AM - 5:00 PM Central Time. Record requests for emergency care only can be directed to [phone] at any time.[facility] Allergies Active Allergy Reactions Criticality Noted Date Comments Adhesive Rash 01/22/2011 rash, only with 3M Durapore (silky) tape. Clear and paper tape ok. Hydrocodone Bitartrate Shortness of benson th (Reselect Reaction) 10/07/2021 Hydrocodone-Acetaminop hen Other (see comments),Nausea Only 03/20/2018 Ibuprofen GI bleeding 12/23/2018 Patient reports hx of weight loss surgery and stomach ulcer Nsaids (Non-Steroidal Anti-Inflammatory Drug) Other (see comments) 09/30/2021 H/o robbi-n-y gastric bypass. AVOID NSAIDs and aspirin due to risk of gastric and/or G-J anastomotic ulcers. If Claudy must be on short course of NSAIDs or aspirin, use enteric coated if possible and use PPI // Annalise Cano RN, Bariatric Nurse Clinician, [facility] Weight Management 09/30/2021 Medications * This document contains information received from the source organization and may not represent a complete record from that organization. calcium citrate-vitamin D3 315 mg-6.25 mcg (250 Unit) per tablet Take 1500mg daily in divided doses with meals Active cholecalciferol (VITAMIN D3) 125 mcg (5,000 Unit) tablet Take 5,000 Units by mouth. 2 Active cyanocobalamin (VITAMIN B12) 1,[address] 1,000 mcg under the tongue. Active dextroamphetamine- amphetamine (ADDERALL) 30 mg tablet Take 30 mg by mouth 2 (two) times a day. 3 Active lamoTRIgine (LaMICtaL) 200 mg tablet Take 200 mg by mouth daily. 3 Active pediatric multivitamin-iron- minerals (FLINTSTONES COMPLETE) chewable tablet Chew 2 tablets. Active omeprazole (PriLOSEC) [address] capsule Take 1 capsule by mouth 2 (two) times a day. 2 Active ondansetron ODT (ZOFRAN-ODT) 4 mg disintegrating tablet Dissolve 4 mg in the mouth every 8 (eight) hours as needed. 2 Active sucralfate (CARAFATE) 1 gram tablet Take by mouth. 2 Active albuterol 90 mcg/actuation inhaler Inhale 2 puffs every 4 (four) hours as needed for wheezing or shortness of breath. 18 g 1 3 Active guanFACINE (TENEX) 2 mg tablet Take 2 mg by mouth at bedtime. Active torsemide (Demadex) 20 mg tabletIndications: Acute Diastolic (Congestive) Heart Failure (HCC) Take 1 tablet (20 mg total) by mouth 2 (two) times a day. Patient needs Office Visit and Labs for further refills. 60 tablet 4 Active dexAMETHasone (Decadron) 0.1 % ophthalmic solution INSTILL FOUR DROPS IN THE LEFT EAR TWO TIMES A DAY FOR 7 DAYS 4 Active ciprofloxacin-dexA METHasone (Ciprodex) 0.3-0.1 % otic suspension PLACE 4 DROPS INTO RIGHT EAR EVERY 4HRS Active carvediloL (Coreg) 6.25 mg tablet Take 1 tablet (6.25 mg total) by mouth 2 (two) times a day with meals. 60 tablet 11 4 Active nitroglycerin (Nitrostat) 0.4 mg SL tabletIndications: Coronary Artery Disease Without Angina Pectoris Place 1 tablet (0.4 mg total) under the tongue every 2 (two) hours as needed for chest pain. 25 tablet 1 4 Active lisinopriL 10 mg tabletIndications: Hypertensive Heart Disease With Heart Failure (HCC) Take 1 tablet (10 mg total) by mouth daily. 90 tablet 3 4 Active atorvastatin (Lipitor) 40 mg tablet Take 1 tablet (40 mg total) by mouth daily. 90 tablet 3 4 Active levothyroxine 100 mcg tabletIndications: Hypothyroidism Take 1 tablet (100 mcg total) by mouth daily with morning meal. 90 tablet 3 4 Active aspirin [address] tablet Take 1 tablet (81 mg total) by mouth daily. 90 tablet 3 4 Active Active Problems Problem Noted Date Diagnosed Date Acute Diastolic (Congestive) Heart Failure 06/04 Hypertensive Heart Disease With Heart Failure Deficiency Vitamin D 11/30/2017 Overview (06/04/2022): Results for CLAUDY GALVEZ ( ) as of 11/30/2017 13:14 Ref. Range 11/29/2017 09:11 VITAMIN D TOTAL Latest Ref Range: 30.0 - 80.0 ng/mL 16.7 (L) Presence Of Aortocoronary Bypass Graft 8 Overview (06/04/2022): 04/28/17 s/p Coronary artery bypass graft surgery x3 (left internal mammary artery to left anterior descending artery and reverse saphenous vein grafts to the obtuse marginal branch of circumflex coronary artery and distal right coronary artery). Fatty Liver 12/09/2016 Overview (06/04/2022): 11/04/17 Diffuse fatty infiltration of the liver Coronary Artery Disease Without Angina Pectoris 12/03/2016 Overview (06/04/2022): - 12/03/16 angiogram: left main coronary artery had a 20% distal stenosis. The LAD was totally occluded in the proximal midvessel, with extensive bcweo-rn-wqax and ttyb-wm-rqcc collaterals. The codominant circumflex had a 50% [...] occlusion of the LAD with extensive collaterals Apnea Sleep Obstructive 03/16/2016 Hyperlipidemia Type IV 12/31/2015 Steatohepatitis Non Alcoholic 07/16/2014 Hypothyroidism 03/23/2011 Bipolar Disorder 03/21/2009 Overview (06/04/2022): managed by psychiatry Attention Deficit Hyperactive Disorder 6 Resolved Problems Problem Noted Date Diagnosed Date Resolved Date Diabetes Mellitus Type 2 Hyperglycemia 12/31/2015 06/08/2022 Encounters Date Type Department Care Team Description 10/17/2024 Clinical Communication Primary Care on Demand at [facility] [address] [place] [address] Victor Hugo Guzman M.D. Annual Wellness Visit 10/16/2024 Orders Only [facility] MNT Duke Benites M.B.B.S., M.D. from Last 3 Months Immunizations Immunization Administration Dates Next Due HepB Adult 05/07/2020 Influenza TIV (IM) 03/15/2006,02/27/2004 Influenza, Seasonal, Injectable 03/15/2006,02/26 Influenza, Unspecified 03/15/2006,02/27/2004 MMR 08/19/1993 PPD Test 03/23/2011 PPSV23 10/22/2010 SARS-COV-2 (COVID-19) - PFIZ ER (Discontinued)(12 years or older) 04/27/2021 Td (Adult), adsorbed 01/22/2003,09/04/1991 Tdap 08/02/2012 influenza vaccine quad (FLUZONE/FLUARIX) (6 months and older)(PF) 02/26/2021,05/07/2020,01/23/2019,2016,12/29/2015 Social History Tobacco Use Types Packs/Day Years Used Date Smoking Tobacco: Every Day Cigarettes Smokeless Tobacco: Never Tobacco Cessation:Ready to Q uit: Not Asked; Counseling Given: Yes Alcohol Use Standard Drinks/Week Comments Yes 0 (1 standard drink = 0.6 oz pur e alcohol) Occasional Humiliation, Afraid, Rape, and Kick questionnair e Answer Date Recorded Within the last year, have y ou been afraid of your partner or ex-partner? No 07/01/2022 Within the last year, have y ou been humiliated or emotionally abused in other ways by your partner or ex-partner? No Within the last year, have y ou been kicked, hit, slapped, or otherwise physically hurt by your partner or ex-partner? No 07/01/2022 Within the last year, have y ou been raped or forced to have any kind of sexual activity by your partner or ex-partner? No 07/01/2022 Hunger Vital Sign Answer Date Recorded Within the past 12 months, y ou worried that your food would run out before you got the money to buy more. Sometimes true Within the past 12 months, t he food you bought just didn't last and you didn't have money to get more. Sometimes true PRAPARE - Transportation Answer Date Re corded In the past 12 months, has l ack of transportation kept you from medical appointments or from getting medications? No 06/16 In the past 12 months, has l ack of transportation kept you from meetings, work, or from getting things needed for daily living? No 07/01/2022 Housing Stability Vital Sign Answer Clifford e Recorded In the last 12 months, was t here a time when you were not able to pay the mortgage or rent on time? Yes 07/01/2022 In the last 12 months, how many places have you lived? 1 07/01/2022 In the last 12 months, was t here a time when you did not have a steady place to sleep or slept in a alf (including now)? No 07/01/2022 Depression Answer Date Recor ded PHQ-9 Total Score (max 27) 23 10/30 Education Answer Date Recorded What is the highest level of school you have completed or the highest degree you have received? GED or equivalent Sex and Gender Information Value Date Recorded Sex Assigned at Not on file Legal Sex Male 4:27 AM EMERGENCY ROOM PHYSICIAN Gender Identity Not on file Sexual Orientation Not on file Last Filed Vital Signs Vital Sign Reading Time Taken Comments Blood Pressure 152/94 10/31/2023 10:55 AM CDT Pulse 90 10/31/2023 10:55 AM CDT Temperature 36.1 C (97 F) 10/31/2023 10:47 AM CDT Respiratory Rate 16 10/31/2023 10:4 7 AM CDT Oxygen Saturation 99% 09/08/2022 8:55 AM CDT Inhaled Oxygen Concentration - - Weight 75.1 kg (165 lb 10.8 oz) 024 10:47 AM CDT Height 167.5 cm (5' 5.95) 06/04/2022 1 1:31 AM EMERGENCY ROOM PHYSICIAN Body Mass Index 26.79 06/04/2022 11:31 AM EMERGENCY ROOM PHYSICIAN Plan of Treatment Health Maintenance Due Date Last Done Comments CT Colonography 1974 Cologuard 1974 FIT 1974 HIV Screening 1974 Hepatitis C Screening 1974 Visit: Medicare Annual Wellness 1974 Hepatitis A Vaccines (1 of 2 - Risk 2-dose series) 1993 Pneumococcal vaccine (50+ years) (2 of 2 - PCV) 10/23/2011 10/22/2010 Hepatitis B Vaccines (2 of 3 - 19+ 3-dose series) 06/04/2020 05/07/2020 DTaP,Tdap,and Td Vaccines (3 - Td or Tdap) 08/02/2022 08/02/2012, 01/22/2003, 09/04/1991 Lipid (Cholesterol) Screening 06/04/2023 06/04/2022, 05/07/2020, 03/30/2019, Additional history exists Thyroid Stimulating Hormone (TSH) test for thyroid function 06/04/2023 06/04/2022, 05/07/2020, 09/28/2018, Additional history exists Office Visit for Blood Pressure Check / Re-check 01/31/2024 10/31/2023 Depression Screening (Annual PHQ-2) 04/18/2024 Zoster Vaccines (1 of 2) 2024 Tobacco Cessation counseling 10/30/2024 10/31/2023 Visit: Chronic Disease, age 18+ 10/30/2024 10/31/2023 COVID-19 Vaccine ( season) 2024 04/27/2021, 04/05/2021 Influenza Vaccine (#1) 2024 , 05/07/2020, 01/23/2019, Additional history exists Fasting Glucose for Diabetes Screening 03/09/2027 03/09/2024, 06/04/2022, 06/04/2022, Additional history exists Colonoscopy 01/07/2032 01/06/2022, 01/03/2017 Colorectal Cancer Screening 01/07/2032 IPV Vaccines Aged Out No longer eligi ble based on patient's age to complete this topic Medical Devices Implanted Type Area Shaping Machine Operator Device Identifier Shelf Expiration Date Model / Serial / Lot Kls-Screw Xdrive Micro 2.0 X 15mm - Koenig [id number] Implanted:Qty: 6 on 12/05/2012 Hardware e.g. pins/screws/ rods ERMELINDA Merrill Description:Device Manufactu jason Merrill. Device Status Text - [id number]. Kls-Screw Xdrive Micro 1.5x9mm - Koenig [id number] Implanted:Qty: 2 on 12/05/2012 Hardware e.g. pins/screws/ rods ERMELINDA Merrill Description:Device Manufactu jason Merrill. Device Status Text - [id number]. Kls-Plate Lefort I Micro Lt 9mm - Koenig [id number] Implanted:Qty: 1 on 12/05/2012 Hardware e.g. pins/screws/ rods ERMELINDA Merrill Description:Device Manufactu jason Merrill. Device Status Text - [id number]. Kls-Screw Xdrive Micro 1.5x7mm - Koenig [id number] Implanted:Qty: 10 on 12/05/2012 Hardware e.g. pins/screws/ rods ERMELINDA Merrill Description:Device Manufactu jason Merrill. Device Status Text - [id number]. Kls-Plate 1.5 L 3x2 Lng Lt - Koenig [id number] Implanted:Qty: 1 on 12/05/2012 Hardware e.g. pins/screws/ rods ERMELINDA Merrill Description:Device Manufactu rer - ERMELINDA Merrill. Device Status Text - [id number]. Kls-Screw Xdrive Micro 1.5x11mm - Koenig [id number] Implanted:Qty: 2 on 12/05/2012 Hardware e.g. pins/screws/ rods ERMELINDA Merrill Description:Device Manufactu rer - ERMELINDA Merrill. Device Status Text - [id number]. Kls-Screw 2.0 X 8mm - Koenig [id number] Implanted:Qty: 8 on 12/05/2012 Hardware e.g. pins/screws/ rods ERMELINDA Merrill Description:Device Manufactu rer - ERMELINDA Merrill. Device Status Text - [id number]. Kls-Plate 1.5 6ho Reg - Koenig [id number] Implanted:Qty: 1 on 12/05/2012 Hardware e.g. pins/screws/ rods ERMELINDA Merrill Description:Device Manufactu rer - ERMELINDA Merrill. Device Status Text - [id number]. Kls-Screw Xdrive Emerg 1.8x5mm - Koenig [id number] Implanted:Qty: 1 on 12/05/2012 Hardware e.g. pins/screws/ rods ERMELINDA Merrill Description:Device Manufactu rer - ERMELINDA Merrill. Device Status Text - [id number]. Kls-Plate Lefort I Micro Rt 9mm - Koenig [id number] Implanted:Qty: 1 on 12/05/2012 Hardware e.g. pins/screws/ rods ERMELINDA Merrill Description:Device Manufactu rer - ERMELINDA Merrill. Device Status Text - [id number]. Kls-Screw Xdrive Micro 2.0 X 13mm - Koenig [id number] Implanted:Qty: 3 on 12/05/2012 Hardware e.g. pins/screws/ rods ERMELINDA Merrill Description:Device Manufactu rer - ERMELINDA Merrill. Device Status Text - [id number]. Kls-Plate 1.5 L 3x2 Lng Rt - Koenig [id number] Implanted:Qty: 1 on 12/05/2012 Hardware e.g. pins/screws/ rods ERMELINDA Merrill Description:Device Manufactu rer - ERMELINDA Merrill. Device Status Text - [id number]. Kls-Simplant - Koenig [id number] Implanted:Qty: 1 on 12/05/2012 Hardware e.g. pins/screws/ rods TODJudith Garfield Description:Device Manufactu rer - ERMELINDA Garfield. Device Status Text - [id number]. Kls-Screw Xdrive Micro 1.5x5mm - Koenig [id number] Implanted:Qty: 18 on 12/05/2012 Hardware e.g. pins/screws/ rods TODJudith Garfield Description:Device Manufactu rer - ERMELINDA Garfield. Device Status Text - [id number]. Kls-Screw Xdrive Micro 2.0 X 17mm - Koenig [id number] Implanted:Qty: 2 on 12/05/2012 Hardware e.g. pins/screws/ rods ERMELINDA Garfield Description:Device Manufactu rer - ERMELINDA Merrill. Device Status Text - [id number]. Procedures Procedure Name Priority Date/Time Associated Diagnosis Comments HEMOGLOBIN A1C, B Routine 06/04/2022 12: 44 PM EMERGENCY ROOM PHYSICIAN Diabetes Mellitus Type 2 Hyperglycemia (HCC) LIPID PANEL, S Routine 06/04/2022 12:44 PM EMERGENCY ROOM PHYSICIAN Hyperlipidemia Type IV THYROID-STIMULATING HORMONE-SENSITIVE (S-TSH) Routine 06/04/2022 12:44 PM EMERGENCY ROOM PHYSICIAN Hypothyroidism from Last 3 Months or Most Recently Relevant to Health Maintenance Results * (ABNORMAL) Lipid Panel (06/04/2022 12:44 PM EMERGENCY ROOM PHYSICIAN) Triglycerides 221(H) mg/dL 06/04/2022 4:03 PM EMERGENCY ROOM PHYSICIAN OWAT Comment: ----REFERENCE VALUE---- Normal: <150 mg/dL Borderline High: 150-199 mg/dL High: 200-499 mg/dL Very High: > or =500 mg/dL Cholesterol, Total 237(H) mg/dL 2022 4:03 PM EMERGENCY ROOM PHYSICIAN OWAT Comment: ----REFERENCE VALUE---- Desirable: < 200 mg/dL Borderline High: 200 - 239 mg/dL High: > or = 240 mg/dL Cholesterol, LDL, Calculated 150(H) mg/dL 06/04/2022 4:03 PM EMERGENCY ROOM PHYSICIAN OWAT Comment: ----REFERENCE VALUE---- Desirable: <100 mg/dL Above Desirable: 100-129 mg/dL Borderline High: 130-159 mg/dL High: 160-189 mg/dL Very High: >=190 mg/dL ----ADDITIONAL INFORMATION---- LDL cholesterol calculated using the Manjarrez/NIH equation. Cholesterol, HDL 47 >=40 mg/dL 06/04/19 4:03 PM EMERGENCY ROOM PHYSICIAN OWAT Cholesterol, Non-HDL, Calculated 190(H) mg/dL 06/04/2022 4:03 PM EMERGENCY ROOM PHYSICIAN OWAT Comment: ----REFERENCE VALUE---- Desirable: <130 mg/dL Above Desirable: 130-159 mg/dL Borderline High: 160-189 mg/dL High: 190-219 mg/dL Very High: > or =220 mg/dL Fasting (8 HR or more) No 06/04/2022 4:03 PM EMERGENCY ROOM PHYSICIAN OWAT Blood (Blood, Venous) 06/04/2022 12:44 PM EMERGENCY ROOM PHYSICIAN 06/04/2022 4:03 PM EMERGENCY ROOM PHYSICIAN Duke Joy M.D. LAB BLOOD ADD-O N Final Result [facility] [address] [place] [id number], [facility] OWAT [facility] [place] [address] [place] [id number] * S-TSH (Thyroid-Stimulating Hormone - Sensitive) (06/04/2022 12:44 PM EMERGENCY ROOM PHYSICIAN) TSH, Sensitive 3.8 0.3 - 4.2 mIU/L 06/04/2022 4:04 PM EMERGENCY ROOM PHYSICIAN OWAT Blood (Blood, Venous) 06/04/2022 12:44 PM EMERGENCY ROOM PHYSICIAN 06/04/2022 4:04 PM EMERGENCY ROOM PHYSICIAN us Duke Joy M.D. LAB BLOOD ADD-O N Final Result Performing Organization Address [facility]/ZIP Co de Phone Number [facility] [address] [place] [address], [place] OWAT [facility] [place] [address] [place] [address] * (ABNORMAL) Hemoglobin A1c (06/04/2022 12:44 PM EMERGENCY ROOM PHYSICIAN) Hemoglobin A1c, B 6.0(H) 4.2 - 5.6 % 06/04/2022 3:56 PM EMERGENCY ROOM PHYSICIAN OWAT Comment: Hemoglobin A1c values of 5.7-6.4 percent indicate an increased risk for developing diabetes mellitus. In diabetic patients, HbA1c goals should be discussed with healthcare provider. Blood (Blood, Venous) 06/04/2022 12:44 PM EMERGENCY ROOM PHYSICIAN 06/04/2022 3:56 PM EMERGENCY ROOM PHYSICIAN Duke Joy M.D. LAB BLOOD ADD-O N Final Result Performing Organization Address [facility]/[place] Co de Phone Number [facility] [address] [place] [address], [place] OWAT [facility] [place] [address] [place] [address] from Last 3 Months or Most Recently Relevant to Health Maintenance Insurance MEDICARE Care Teams Client Analyst Relationship Specialty Start Date End Date Duke Benites M.B.BDezSDez MRanjit [address] [place] [address] [place] [id number] PCP - General Family Medicine 05/20/22
[2025-01-07 01:28] VITALS: BP 182/110; PULSE 105; RESP 24; TEMP 36.7; O2SAT 98; BMI 27.3
[2025-01-07] MEDS: ACETAMINOPHEN 500 MG TABLET 1000 MG PO (02:03)
--- NOTE | 2025-01-07 02:05 | ED.GENADULT ---
HPI - General Adult General Chief complaint: Ear/Nose/Throat Problem Stated complaint: ear pain in both ears Time Seen by Provider: 01/07/25 01:36 Source: patient Mode of arrival: ambulatory Limitations: no limitations History of Present Illness HPI narrative: 49-year-old male with a notable prior history of several previous bouts of left otitis media and listed prior diagnosis of mastoiditis presents to the emergency room for persistent left ear pain. Reports that he was evaluated in the [place] [facility] within the last 12 hours and was started on antibiotics. Review of the records shows that he was appropriately started on Augmentin and Ciprodex drops. He took his 1st dose 11 hours ago and is frustrated that his symptoms are not improving. He has not taken any Tylenol, ibuprofen or other xclw-[id number]-[id number] medications. Reports that ?I was not given any pain medications?. It does look as though he was given a shot of Toradol. He reports that this was not helpful but based on the timeline he is telling me, his pain did seem to worsen after that medication would have worn off. Has not tried any sleep aids, or other interventions. He has no difficulty swallowing, no difficulty breathing but feels like the swelling and pain or radiating into his left cheek and behind his left ear. He reports swelling but none is visible. He reports than an ear wick was attempted to be inserted in the left side, it has fallen out. He reports fever and chills. He does not have a fever in triage. He reports a notable history of coronary artery disease but does states that he is not taking any of his prescription medications. He has seen an ear nose and throat provider in the past. He smokes. He does have a history of GI bleed per his report. He reports that he has been taking omeprazole the last few days and is not currently symptomatic. Does not take any anticoagulants. Is eating and drinking. Not immunocompromised. Past medical history notable for untreated coronary artery disease, diabetes, tobacco use. Reports that the only medication he actually takes his omeprazole. Reports an allergy to NSAIDs that is not a true allergy as he did just have a history of GI bleeding while on this. ROS is notable for the generalized and ear symptoms only, currently otherwise denies times 12 systems. Related Data Home Medications ?Medication ?Instructions ?Recorded ?Confirmed amoxicillin 875 mg-potassium 1 tab PO BID 01/07/25 01/07/25 clavulanate 125 mg tablet Previous Rx's ?Medication ?Instructions ?Recorded ciprofloxacin 0.3 %-dexamethasone 4 drp otic (ear) Q4H #7.5 mL 10/27/23 0.1 % ear drops,suspension (Ciprodex) Allergies Allergy/AdvReac Type Severity Reaction Status Date / Time NSAIDS (Non-Steroidal Allergy Unknown Verified 10/26/23 13:05 Anti-Inflamma PFSH PFSH Medical History Coronary artery disease ?I25.10 - Atherosclerotic heart disease of [place] coronary artery without angina pectoris (ICD-10) Diabetes mellitus ?E11.9 - Type 2 diabetes mellitus without complications (ICD-10) CHILDERS (nonalcoholic steatohepatitis) ?K75.81 - Nonalcoholic steatohepatitis (CHILDERS) (ICD-10) Hypothyroidism ?E03.9 - Hypothyroidism, unspecified (ICD-10) Tobacco abuse ?Z72.0 - Tobacco use (ICD-10) Bipolar disorder ?F31.9 - Bipolar disorder, unspecified (ICD-10) ADHD ?F90.9 - Attention-deficit hyperactivity disorder, unspecified type (ICD-10) Dyslipidemia ?E78.5 - Hyperlipidemia, unspecified (ICD-10) Hypertension ?I10 - Essential (primary) hypertension (ICD-10) Otitis externa of left ear ?H60.92 - Unspecified otitis externa, left ear (ICD-10) Congestive heart failure ?I50.9 - Heart failure, unspecified (ICD-10) Surgical History History of cholecystectomy ?Z90.49 - Acquired absence of other specified parts of digestive tract (ICD-10) History of Kyle-en-Y gastric bypass ?Z98.84 - Bariatric surgery status (ICD-10) History of coronary artery bypass graft x 3 ?Z95.1 - Presence of aortocoronary bypass graft (ICD-10) Family History Mother COPD (chronic obstructive pulmonary disease) Father COPD (chronic obstructive pulmonary disease) Coronary artery disease Diabetes High blood pressure High cholesterol Social History Narrative: He lives in [place] with his . Current smoker. Does not drink alcohol. Does not use recreational drugs. Code status is full code for witnessed arrest. is healthcare power of contract attorney What is your current living situation?: I presently have a place to live Problems where you live: no known problems Problems where you live details: NA In the past 12 months, utilities in danger of being shut off: no In past 12 months, lack of transportation kept you from medical appts, meetings, work, or getting things needed for daily living: no In the past 12 mos, have been you worried that your food would run out before you had money to buy more?: never true In the past 12 mos, the food you bought just didn't last and you didn't have money to buy more?: never true Highest level of school completed/degree received: Associate degree: occupational, technical, vocational program Smoking Status: Current every day smoker Second hand tobacco smoke exposure: Yes How often do you have a drink containing alcohol: monthly or less How many standard drinks containing alcohol do you have on a typical day: 1 or 2 How often do you have six or more drinks on one occasion: Never AUDIT-C Alcohol total score: 1 Non-prescribed substance use: denies use Caffeine: Yes How often does anyone, including family, friends and others, physically hurt you: never How often does anyone, including family, friends and others, insult or talk down to you: never How often does anyone, including family, friends and others, threaten you with harm: never How often does anyone, including family, friends and others, scream or curse at you: never service: No Exam Const: Vital Signs, click to edit/add: Vital Signs - 24 hr 01/07/25 01:28 Temperature 98.0 F Pulse Rate [Pulse Oximeter] 105 H Respiratory Rate 24 Blood Pressure [Le ft Upper Arm] 182/110 H Pulse Oximetry 98 Oxygen Delivery Me thod Room Air Documenting provider has reviewed patient's vital signs: yes Other: Anxious but redirectable. No signs of intoxication or impairment. Able to speak in full sentences, not visibly short of breath. Appears nontoxic, does appear older than stated age. HENMT: Common normals: normocephalic, moist oral mucous membranes and oropharynx normal Head and scalp: normocephalic Other: No swelling in the oropharynx, posterior pharynx, palate or inner oral mucosa at all. The right ear has fairly dry ear canal with some mild chronic appearing skin irritation but no active infection. The TM looks normal. The left side has a swollen ear canal but the outer pinna looks completely normal. There is no deformity or swelling of the ear. He does have tenderness over the left mastoid and ear canal area. There is no visible swelling to the face, cheek, eye socket, neck. There are no skin changes. Eye: Common normals: conjunctivae normal General eye: normal appearance of both eyes Conjunctiva: conjunctiva(e) normal Neck & C-Spine: Common normals: full ROM, no lymphadenopathy and no meningeal signs General: normal visual inspection Resp: Common normals: normal respiratory effort, no use of accessory muscles and clear to auscultation bilaterally Effort & inspection: able to speak in complete sentences Auscultation: clear to auscultation bilaterally Cardio: Common normals: regular rate, regular rhythm, S1 normal heart sound, S2 normal heart sound and no murmurs Rate: regular rate Rhythm: regular rhythm Heart sounds: S1 normal and S2 normal Neuro: Meningeal signs: no meningeal signs Psych: Appearance: grossly normal Activity/motor behavior: appropriate eye contact Mood and affect: anxious Insight: fair Judgement: fair Skin: Common normals: no rashes or lesions noted General skin exam: no rashes or lesions noted Course Course ED Course: If year old male with otitis externa, incomplete pain relief at home, has not tried any home interventions. Less than 12 hours on appropriate antibiotics, too soon to determine if there is antibiotic failure. No signs of hypotension, sepsis or true fever here in the emergency room. No signs of airway obstruction, next soft tissue obstruction, abscess or other abnormality. Counseled patient that the antibiotics that were chosen are an excellent choice and we really do need to give him more time to work. I would recommend we give him at least 48 hours. It seems as though he is distressed by his pain. I spent some time counseling him that this is not surprising considering he is not using appropriate [id number]-[id number] options. Counseled on Tylenol 1000 mg every 6 hours. First dose will be given here in the ED. He needs to set an alarm and take this continuously as the baseline Foundation for building his pain control regimen. Patient is counseled on NSAIDs and though it is not ideal for him to take these regularly due to his history of GI bleed. I do recommend that he use them especially for the next 24 hours as he is in severe pain. He will take the medication with food and will continue use of his omeprazole. Recommend 600 mg every 6 hours. He will be given a limited supply of for oxycodone tablets to use for severe pain. Prior to discharge he will be given 10 mg of IM morphine, 30 mg of IM Toradol, a 1000 mg of Tylenol and 50 of Vistaril. Patient's significant other is able to drive. He is not on any medications that would interfere with this. Counseled to make a follow-up appointment for Tuesday in primary care or ENT clinic. If things have not started to improve by that time I would recommend re-evaluation. The alarm symptoms that would warrant ED evaluation including signs of airway obstruction, sepsis were reviewed as indications to come to the ED. Written instructions provided. Vital Signs Vital signs: Initial Vital Signs Temperature 98.0 F 01/07/25 01:28 Temperature Source Temporal Artery Scan 01/07/25 01:28 Pulse Rate 105 H 01/07/25 01:28 Respiratory Rate 24 01/07/25 01:28 Blood Pressure 182/110 H 01/07/25 01:28 Blood Pressure Mean 134 H 01/07/25 01:28 Blood Pressure Position Sitting 01/07/25 01:28 Pulse Oximetry 98 01/07/25 01:28 Oxygen Delivery Method Room Air 01/07/25 01:28 Vital Signs Temperature 98.0 F 01/07/25 01:28 Pulse Rate 105 H 01/07/25 01:28 Respiratory Rate 24 01/07/25 01:28 Blood Pressure 182/110 H 01/07/25 01:28 Pulse Oximetry 98 01/07/25 01:28 Oxygen Delivery Method Room Air 01/07/25 01:28 Temperature 98.0 F 01/07/25 01:28 Pulse Rate 105 H 01/07/25 01:28 Respiratory Rate 24 01/07/25 01:28 Blood Pressure 182/110 H 01/07/25 01:28 Pulse Oximetry 98 01/07/25 01:28 Oxygen Delivery Method Room Air 01/07/25 01:28 Medications Administered Medications: Generic Name Dose Route Start Last Admin Trade Name Aamir PRN Reason Stop Dose Admin Acetaminophen 1,000 mg 01/07/25 01:56 01/07/25 02:03 Acetaminophen 500 Mg Tablet PO 01/07/25 01:57 1,000 mg ONCE ONE Administration Hydroxyzine Pamoate 50 mg 01/07/25 01:56 01/07/25 02:04 Hydroxyzine Pamoate 25 Mg Capsule PO 01/07/25 01:57 50 mg ONCE ONE Administration Ketorolac Tromethamine 30 mg 01/07/25 01:56 01/07/25 02:04 Ketorolac 30 Mg/Ml Inj IM 01/07/25 01:57 30 mg ONCE ONE Administration Morphine Sulfate 10 mg 01/07/25 01:56 01/07/25 02:05 Morphine 10 Mg/Ml Inj IM 01/07/25 01:57 10 mg ONCE ONE Administration Discharge Plan Discharge Clinical Impression: Otitis externa of left ear Patient Disposition: Home w/ Parent or Adult Condition: Stable Instructions: Swimmer's Ear (ED) Additional Instructions: As we reviewed, these infections can be very painful. Your ear canal is certainly quite swollen but there are no signs that this is affecting your airway or esophagus. You have been prescribed excellent antibiotics for this. They will take 48 hours to kick in. You have had only about 11 hours since you started taking them. You are going to have significant pain unless you are doing your part and taking appropriate doses of medications to help with your pain. I recommend Tylenol 1000 mg every 6 hours. This is not going to upset your stomach. You were given a dose in the emergency room at around 2:00 a.m.. Set an alarm and take another dose at 10:00 a.m.. Even with your history of ulcers, I do recommend a couple days of ibuprofen 600 mg every 6 hours. Make sure that you are taking it with food and continue taking the omeprazole every day for at least the next week. You were given a shot of Toradol in the emergency room, this will wear off in about 6 hours. You should plan to take another dose of ibuprofen at about 10:00 a.m. as well. You will continue on these medications if you need relief. I will give you a very small supply of oxycodone, a narcotic pain medication to use if you have maxed out your appropriate doses of Tylenol and ibuprofen every 6 hours and are still miserable. This will be a very small supply and cannot be refilled in the emergency room. Remember you need to be taking the Tylenol and ibuprofen as your base Foundation medication treatment. Remember that the antibiotics need more time to kick in. We cannot tell for sure yet if this is going to be adequate treatment. Tuesday would be the appropriate time to re-evaluate this. I would recommend that you make a follow-up appointment for Tuesday with the ear nose and throat provider or your primary care team and you can cancel it if things are improving as would be expected. If you physically cannot breathe or physically cannot swallow due to feeling of obstruction, you should come to an emergency room. If you are so weak that you cannot walk from her bed to the bathroom have true fevers over 100.4 and or other severe changes, you should be re-evaluated in the meantime in emergency room. Activity Level: Activity as Tolerated Discharge Diet: Regular Prescriptions: No Action ciprofloxacin-dexamethasone [Ciprodex] 0.3-0.1 % drops,suspension 4 drp otic (ear) Q4H Qty: 7.5 0RF amoxicillin-pot clavulanate 875-125 mg tablet 1 tab PO BID Follow Up/Referrals: Provider,Not a Local [Primary Care Provider, Family Practice] Stand Alone Forms: [employer] Info Instructions
== END 2025-01-07 02:19 | disposition home or self-care (01) ==
LOC: ED 02:08
PROVIDERS: Emergency Provider Family Medicine
DX: H60.92 Unspecified otitis externa, left ear (principal)
CPT/HCPCS: 99283; A9270; J1885; J2270